=== PATIENT | male | born 1975 | race Hispanic/Latino ===

== ENCOUNTER 2018-02-15 16:47 | Emergency (ER) | payer OTHER ==
[2018-02-15 18:37] LABS: Absolute Lymphocytes (CBC) 1.3 K/uL (0.7-4.9); Absolute Monocytes 0.4 K/uL (0.1-1.3); Absolute Neutrophil 6.4 K/uL (1.8-8.0); Basophils % 0.6 % (0-1.3); Eosinophils % 1.1 % (0-4.4); Hematocrit 44.2 % (39.6-49.0); Lymphocytes % 15.6 % (15.3-44.8); MCH 30.7 pg (27.0-35.0); MCV 89.7 fL (80-100); MPV 8.6 fL (7.6-11.3); RBC Red Blood Cell Count 4.92 M/uL (4.33-5.43)
[2018-02-15 18:41] LABS: Protime INR 1.08
--- NOTE | 2018-02-15 18:41 | RAD REPORT ---
EXAM DESCRIPTION: RAD - Chest Single View - 02/15/2018 6:10 pm CLINICAL HISTORY: Chest pain COMPARISON: April 2016 TECHNIQUE: AP portable chest image was obtained 1759 hours . FINDINGS: Lungs are clear. Heart and vasculature are normal. No measurable pleural effusion and no p neumothorax. No gross bony abnormality seen. No acute aortic findings suspected. IMPRESSION: No acute cardiopulmonary process. No significant change from comparison.
[2018-02-15 19:01] LABS: ALT/SGPT 45 U/L (12-78); AST/SGOT 24 U/L (15-37); Albumin 3.8 g/dL (3.4-5.0); Alkaline Phosphatase 86 U/L (45-117); BUN Blood Urea Nitrogen 13 mg/dL (7-18); Bicarbonate 27 mmol/L (21-32); Bilirubin Direct 0.1 mg/dL (0-0.2); Bilirubin Total 0.4 mg/dL (0.2-1.0); CKMB Creatine Kinase MB < 1.0 ng/mL (0.3-3.6); Creatine Phosphokinase 118 U/L (39-308); Glucose Level 104 mg/dL (74-106); Magnesium 2.1 mg/dL (1.8-2.4); NT PRO-BNP 52 pg/mL (<125); Protein, Total 7.8 g/dL (6.4-8.2); Sodium Level 140 mmol/L (136-145)
[2018-02-15 19:54] LABS: Urine Blood TRACE (NEG); Urine Glucose NEGATIVE (NEG); Urine Protein NEGATIVE (NEG)
--- NOTE | 2018-02-15 20:27 | RAD REPORT ---
EXAM DESCRIPTION: CT - Head Brain Wo Cont - 02/15/2018 8:08 pm CLINICAL HISTORY: Occipital headache COMPARISON: July 2015 TECHNIQUE: Axial 5 mm thick images of the head were obtained without IV contrast. All CT scans are performed using dose optimization technique as appropriate and may include automated exposure control or mA/KV adjustment according to patient size. FINDINGS: No intracranial hemorrhage, mass, edema or shift of mid-line structures. No acute infarcti on changes seen. No abnormal extra-axial fluid collections. Ventricles are normal. No low-lying cereb ellar tonsils. Mastoid air cells and visualized portions of the paranasal sinuses are clear. No acute bony findings. IMPRESSION: Negative non-contrast CT head examination for acute or significant finding. No signific ant change from 2016.
--- NOTE | 2018-02-15 21:19 | EDPHYS ---
Physician Documentation [facility] Name: Jad Sanz Age: 42 yrs Sex: Male : 1975 Arrival Date: 02/15/2018 Time: 16:50 Bed 18 Private MD: ED Physician Landon Ramirez HPI: 02/15 17:28 This 42 yrs old Male presents to ER via Ambulatory with complaints of Anxiety, jmm Chest Pain. 17:28 The patient or guardian reports chest pain that is located primarily in the substernal [facility] area. Onset: gradually, 2 hour(s) ago. The pain does not radiate. Associated signs and symptoms: Pertinent positives: headache. This is a 42 year old male with a history of HTN that presents to the ED with chest pain and headache beginning approx 2 hours ago. Patient states his chest pain is currently minimal but still complains of headache. Patient denies weakness, Denies fever or chills. Patient denies radiation of chest pain . Historical: - Allergies: 17:10 NKA; iw - Home Meds: 17:10 None [Active]; iw - PMHx: 17:10 Hypertension; Gout; iw - PSHx: 17:10 None; iw - Immunization history:: Adult Immunizations up to date. - Social history:: Smoking status: Patient/guardian denies using tobacco. - Ebola Screening: : Patient negative for fever greater than or equal to 101.5 degrees Fahrenheit, and additional compatible Ebola Virus Disease symptoms Patient denies exposure to infectious person Patient denies travel to an Ebola-affected area in the 21 days before illness onset No symptoms or risks identified at this time. ROS: 17:28 Constitutional: Negative for fever, chills, and weight loss. jmm 17:28 Respiratory: Negative for shortness of breath, cough, wheezing, and pleuritic chest pain, Abdomen/GI: Negative for abdominal pain, nausea, vomiting, diarrhea, and constipation, Back: Negative for injury and pain, MS/Extremity: Negative for injury and deformity, Skin: Negative for injury, rash, and discoloration. 17:28 Cardiovascular: Positive for chest pain. 17:28 Neuro: Positive for headache. 17:28 All other systems are negative. Exam: 17:16 ECG was reviewed by the Attending Physician. [facility] 17:28 Constitutional: This is a well developed, well nourished patient who is awake, alert, jmm and in no acute distress. Head/Face: atraumatic. 17:28 Chest/axilla: Inspection: normal, Palpation: is normal. 17:28 Cardiovascular: Rate: normal, Rhythm: regular, Pulses: no pulse deficits are appreciated. 17:28 Respiratory: the patient does not display signs of respiratory distress, Respirations: normal, Breath sounds: are clear throughout. 17:28 Abdomen/GI: Inspection: obese Bowel sounds: normal, Palpation: abdomen is soft and non-tender, in all quadrants. 17:28 Back: ROM is normal. 17:28 Musculoskeletal/extremity: ROM: intact in all extremities. 17:28 Skin: Appearance: Color: normal in color. 17:28 Neuro: Orientation: is normal, Mentation: is normal, Memory: is normal. 17:28 Psych: Behavior/mood is pleasant, cooperative. Vital Signs: 17:10 BP 166 / 96; Pulse 64; Resp 18; Temp 98.2; Pulse Ox 98% on R/A; Weight 176.9 kg; Height iw 6 ft. 2 in. (187.96 cm); Pain 8/10; 18:24 BP 150 / 82; Pulse 59; Resp 16; Pulse Ox 98% on R/A; mh5 19:30 BP 133 / 76; Pulse 66; Resp 18; Pulse Ox 98% ; Pain 0/10; ea 20:30 BP 140 / 83; Pulse 69; Resp 18; Pulse Ox 97% ; Pain 0/10; ea 21:15 BP 140 / 82; Pulse 70; Resp 18; Temp 97.6; Pulse Ox 99% ; Pain 0/10; ea 17:10 Body Mass Index 50.07 (176.90 kg, 187.96 cm) MDM: 17:24 Patient medically screened. [facility] 19:52 Data reviewed: vital signs, nurses notes, lab test result(s). florinda 21:15 ED course: HEART SCORE = 1. ED course: PERC NEGATIVE. [facility] 21:30 Counseling: I had a detailed discussion with the patient and/or guardian regarding: the [facility] historical points, exam findings, and any diagnostic results supporting the discharge/admit diagnosis, lab results, radiology results, the need for outpatient follow up, to return to the emergency department if symptoms worsen or persist or if there are any questions or concerns that arise at home. 02/15 17:25 Order name: Basic Metabolic Panel; Complete Time: 19:28 [facility] 02/15 17:25 Order name: CBC with Diff; Complete Time: :28 [facility] 02/15 17:25 Order name: Ckmb; Complete Time: 19:28 [facility] 02/15 17:25 Order name: CPK; Complete Time: :28 [facility] 02/15 17:25 Order name: LFT's; Complete Time: :28 [facility] 02/15 17:25 Order name: Magnesium; Complete Time: 19:28 [facility] 02/15 17:25 Order name: NT PRO-BNP; Complete Time: :28 [facility] 02/15 17:25 Order name: PT-INR; Complete Time: :28 [facility] 02/15 17:25 Order name: Ptt, Activated; Complete Time: :28 [facility] 02/15 17:25 Order name: Troponin (emerg Dept Use Only); Complete Time: :28 [facility] 02/15 17:25 Order name: XRAY Chest (1 view); Complete Time: :28 [facility] 02/15 17:25 Order name: EKG; Complete Time: 17:26 [facility] 02/15 17:25 Order name: CT Head Brain wo Cont; Complete Time: 20:45 [facility] 02/15 19:19 Order name: Urine Dipstick--Ancillary (enter results) 2 02/15 17:25 Order name: Cardiac monitoring; Complete Time: 18:11 [facility] 02/15 17:25 Order name: EKG - Nurse/Tech; Complete Time: 18:11 [facility] 02/15 17:25 Order name: IV Saline Lock; Complete Time: 18:11 [facility] 02/15 17:25 Order name: Labs collected and sent; Complete Time: 18:11 [facility] 02/15 17:25 Order name: O2 Per Protocol; Complete Time: 18:11 [facility] 02/15 17:25 Order name: O2 Sat Monitoring; Complete Time: 18:11 [facility] 02/15 17:25 Order name: Urine Dipstick-Ancillary (obtain specimen); Complete Time: 19:18 jmm EC:16 Rate is 68 beats/min. Rhythm is regular. QRS [place] is Normal. NE interval is normal. QRS jmm interval is normal. QT interval is normal. T waves are Normal. No ST changes noted. Administered Medications: No medications were administered Disposition: 02/16 15:57 Co-signature as Attending Physician, Landon Ramirez MD. Disposition: 02/15/18 21:18 Discharged to Home. Impression: Chest pain, unspecified, Headache. - Condition is Stable. - Discharge Instructions: Nonspecific Chest Pain, General Headache Without Cause, [id number]. - Medication Reconciliation Form, Thank You Letter, Antibiotic Education, Prescription Opioid Use form. - Follow up: Private Physician; When: 1 - 2 days; Reason: Recheck today's complaints, Continuance of care, Re-evaluation by your physician. Signatures: Dispatcher [employer] EDMS Niko Wall PA PA jmm Williams, Irene, RN RN iw Antunez, Elena, RN RN ea Starr, Gregory, MD MD gs Corrections: (The following items were deleted from the chart) 02/15 21:32 21:18 02/15/2018 21:18 Discharged to Home. Impression: Chest pain, unspecified; ea Headache. Condition is Stable. Forms are Medication Reconciliation Form, Thank You Letter, Antibiotic Education, Prescription Opioid Use. Follow up: Private Physician; When: 1 - 2 days; Reason: Recheck today's complaints, Continuance of care, Re-evaluation by your physician. florinda 22:14 22:13 Counseling: I had a detailed discussion with the patient and/or guardian flroinda regarding: the historical points, exam findings, and any diagnostic results supporting the discharge/admit diagnosis, lab results, radiology results, the need for outpatient follow up, to return to the emergency department if symptoms worsen or persist or if there are any questions or concerns that arise at home, florinda
--- NOTE | 2018-02-15 21:19 | ER ---
Nurse's Notes [facility] Name: Jad Sanz Age: 42 yrs Sex: Male : 1975 Arrival Date: 02/15/2018 Time: 16:50 Bed 18 Private MD: Diagnosis: Chest pain, unspecified;Headache Presentation: 02/15 17:06 Presenting complaint: Patient states: c/o headache to occipital area, chills, sweating, iw dizziness, left sided chest pressure, pain to left arm, took his BP and it was 176/97, was taken off BP a year ago, called Dr. Campbell and was told to come to ER. Transition of care: patient was not received from another setting of care. Onset of symptoms was February 15, 2018. Risk Assessment: Do you want to hurt yourself or someone else? Patient reports no desire to harm self or others. Initial Sepsis Screen: Does the patient meet any 2 criteria? No. Patient's initial sepsis screen is negative. Does the patient have a suspected source of infection? No. Patient's initial sepsis screen is negative. Care prior to arrival: None. 17:06 Method Of Arrival: Ambulatory iw 17:06 Acuity: RONNI 3 iw Historical: - Allergies: 17:10 NKA; iw - Home Meds: 17:10 None [Active]; iw - PMHx: 17:10 Hypertension; Gout; iw - PSHx: 17:10 None; iw - Immunization history:: Adult Immunizations up to date. - Social history:: Smoking status: Patient/guardian denies using tobacco. - Ebola Screening: : Patient negative for fever greater than or equal to 101.5 degrees Fahrenheit, and additional compatible Ebola Virus Disease symptoms Patient denies exposure to infectious person Patient denies travel to an Ebola-affected area in the 21 days before illness onset No symptoms or risks identified at this time. Screenin:29 Abuse screen: Denies threats or abuse. Nutritional screening: No deficits noted. em Tuberculosis screening: No symptoms or risk factors identified. Fall Risk None identified. Assessment: 17:44 General: Appears in no apparent distress. comfortable, Behavior is calm, cooperative. em Pain: Complains of pain in occipital area and chest Pain does not radiate. Pain began 3 hours ago. Neuro: Level of Consciousness is awake, alert, obeys commands, Oriented to person, place, time, situation, Moves all extremities. Speech is normal, Facial symmetry appears normal, Reports headache occipital area. Cardiovascular: Capillary refill < 3 seconds Patient's skin is warm and dry. Cardiovascular: Reports diaphoresis, nausea, Denies Heart tones S1 S2 present. Respiratory: Airway is patent Respiratory effort is even, unlabored, Respiratory pattern is regular, symmetrical. GI: Abdomen is obese. : No signs and/or symptoms were reported regarding the genitourinary system. EENT: No signs and/or symptoms were reported regarding the EENT system. Derm: Skin is intact, Skin is pink, warm \T\ dry. Musculoskeletal: Range of motion: intact in all extremities. 18:00 Reassessment: Patient appears in no apparent distress at this time. I agree with above iw assessment by Joseph Tapia LVN. 18:30 Reassessment: Patient appears in no apparent distress at this time. Patient and/or em family updated on plan of care and expected duration. Pain level reassessed. Patient is alert, oriented x 3, equal unlabored respirations, skin warm/dry/pink. rates pain 4/10 Patient states feeling better. 19:20 General: Appears in no apparent distress. Behavior is calm, cooperative. Pain: Denies ea pain. Neuro: Level of Consciousness is awake, alert, obeys commands, Oriented to person, place, time, situation. Cardiovascular: Heart tones S1 S2 present Patient's skin is warm and dry. Respiratory: Airway is patent Respiratory effort is even, unlabored, Respiratory pattern is regular, symmetrical, Breath sounds are clear bilaterally. GI: Abdomen is obese, Bowel sounds present X 4 quads. : No signs and/or symptoms were reported regarding the genitourinary system. EENT: No signs and/or symptoms were reported regarding the EENT system. Derm: Skin is pink, warm \T\ dry. Musculoskeletal: Circulation, motion, and sensation intact. 20:59 Reassessment: Patient and/or family updated on plan of care and expected duration. Pain ea level reassessed. Patient is alert, oriented x 3, equal unlabored respirations, skin warm/dry/pink. Patient denies pain at this time. Patient states feeling better. 21:20 Reassessment: Patient and/or family updated on plan of care and expected duration. Pain ea level reassessed. Patient is alert, oriented x 3, equal unlabored respirations, skin warm/dry/pink. Discharge instructions given to patient, verbalized the understanding of instruction. Patient denies pain at this time. Patient states feeling better. Vital Signs: 17:10 BP 166 / 96; Pulse 64; Resp 18; Temp 98.2; Pulse Ox 98% on R/A; Weight 176.9 kg; Height iw 6 ft. 2 in. (187.96 cm); Pain 8/10; 18:24 BP 150 / 82; Pulse 59; Resp 16; Pulse Ox 98% on R/A; mh5 19:30 BP 133 / 76; Pulse 66; Resp 18; Pulse Ox 98% ; Pain 0/10; ea 20:30 BP 140 / 83; Pulse 69; Resp 18; Pulse Ox 97% ; Pain 0/10; ea 21:15 BP 140 / 82; Pulse 70; Resp 18; Temp 97.6; Pulse Ox 99% ; Pain 0/10; ea 17:10 Body Mass Index 50.07 (176.90 kg, 187.96 cm) ED Course: 16:50 Patient arrived in ED. mr 17:04 Niko Wall PA is PHCP. jmm 17:04 Landon Ramirez MD is Attending Physician. jmm 17:09 Triage completed. iw 17:10 Arm band placed on. iw 17:24 EKG done, by metallographic technician. reviewed by Niko MENDES. dt2 17:41 Joseph Tapia LVN is Primary Nurse. em 18:01 CT Head Brain wo Cont In Process Unspecified. EDMS 18:08 X-ray completed. Patient moved back from radiology. ml 18:09 XRAY Chest (1 view) In Process Unspecified. EDMS 18:25 No provider procedures requiring assistance completed. Inserted saline lock: 20 gauge em in right antecubital area, using aseptic technique. Blood collected. Patient maintains SpO2 saturation greater than 95% on room air. 18:29 Patient has correct armband on for positive identification. Bed in low position. Call em light in reach. Side rails up X2. Adult w/ patient. Pulse ox on. NIBP on. 19:41 Primary Nurse role handed off by Joseph Tapia LVN rg2 19:48 Sheyla Hargrove, JEVON is Primary Nurse. ea 21:27 IV discontinued, intact, bleeding controlled, No redness/swelling at site. Pressure ea dressing applied. Administered Medications: No medications were administered Outcome: 21:18 Discharge ordered by . florinda 21: Discharged to home ambulatory, with significant other. herson 21: Condition: improved 21:26 Discharge instructions given to patient, Instructed on discharge instructions, follow up and referral plans. Demonstrated understanding of instructions, follow-up care. 21:32 Patient left the ED. ea Signatures: Dispatcher [employer] EDMichaela Navas rg2 Niko Wall PA PA Yahaira Lowry mr Tapia, Joseph, JUNIOR BUSINESS ANALYST JUNIOR BUSINESS ANALYST Tiffanie Arizmendi, Ashly Johnson RN, [facility] Sheyla Hargrove RN RN Jane Rain dt2
--- NOTE | 2018-02-16 06:02 | EKG ---
Test Date: 2018-02-15 Test Time: 17:16:30 Gi Asst: SANDIE MEASUREMENT RESULTS: Intervals: Rate: 68 UT: 190 QRSD: 100 QT: 426 QTc: 452 [place]: P: 36 UT: 190 QRS: -4 T: -4 INTERPRETIVE STATEMENTS: Normal sinus rhythm Incomplete right bundle branch block Minimal voltage criteria for LVH, may be normal variant Cannot rule out Anterior infarct, age undetermined Abnormal ECG Compared to ECG 04/24/2016 01:22:42 Incomplete right bundle-branch block now present Left ventricular hypertrophy now present Myocardial infarct finding now present Electronically Signed On 02-16-18 06:01:28 CDT by Emir Foster
== END 2018-02-15 21:32 | disposition home or self-care (01) ==
LOC: ER 16:47
DX: R51 Headache (principal); I10 Essential (primary) hypertension
CPT/HCPCS: 36415; 70450; 71045; 80048; 80076; 81003; 82550; 82553; 83735; 83880; 84484; 85025; 85610; 85730; 93005; 99284

== ENCOUNTER 2018-11-28 01:49 | Emergency (ER) | payer OTHER, SELFPAY ==
[2018-11-28] MEDS ORDERED: ACETAMINOPHEN 500 MG TAB ONE (02:17)
[2018-11-28 02:28] LABS: Urine Bacteria 20-50 /HPF (NONE SEEN); Urine Culture Reflex Order NOT NEEDED; Urine RBC <5 /HPF (NONE SEEN)
[2018-11-28] MEDS ORDERED: NA CHLORIDE 0.9% 1,000 ML ONE (02:33)
[2018-11-28 02:38] LABS: Absolute Lymphocytes (CBC) 0.8 K/uL (0.7-4.9); Absolute Monocytes 0.4 K/uL (0.1-1.3); Absolute Neutrophil 11.1 K/uL (1.8-8.0); Basophils % 0.2 % (0-1.3); Eosinophils % 0.4 % (0-4.4); Hematocrit 44.4 % (39.6-49.0); Lymphocytes % 6.8 % (15.3-44.8); MPV 8.8 fL (7.6-11.3); Monocytes % 3.2 % (3.3-12.3); RBC Red Blood Cell Count 4.97 M/uL (4.33-5.43)
[2018-11-28 02:52] LABS: Albumin 3.7 g/dL (3.4-5.0); Bilirubin Direct 0.2 mg/dL (0-0.2); Bilirubin Total 0.9 mg/dL (0.2-1.0); Potassium 3.7 mmol/L (3.5-5.1); Protein, Total 7.5 g/dL (6.4-8.2)
[2018-11-28 02:54] LABS: Urine Blood 1+ (NEG); Urine Glucose NEGATIVE (NEG); Urine Protein 2+ (NEG); Urine pH 6.5 (5.0-7.0)
[2018-11-28] MEDS ORDERED: CEFTRIAXONE/SWI 1gm 1 GM/10 ML SYR ONE (03:25)
--- NOTE | 2018-11-28 04:21 | EDPHYS ---
Physician Documentation [facility] Name: Jad Sanz Age: 43 yrs Sex: Male : 1975 Arrival Date: 11/28/2018 Time: 01:51 Bed 7 Private MD: ED Physician Jass Lino HPI: 11/28 02:02 This 43 yrs old Male presents to ER via Unassigned with complaints of Low Back rn Pain, Pain With Urination. 02:03 The patient presents with urinary symptoms, dysuria. Onset: The symptoms/episode rn began/occurred yesterday. Modifying factors: The symptoms are alleviated by nothing, the symptoms are aggravated by urinating. Severity of symptoms: At their worst the symptoms were mild, in the emergency department the symptoms are unchanged. The patient has experienced a previous episode. Reports dysuria, chills, fever, began yesterday, has had UTI in past as well as kidney stones. Reports not having pain from kidney stone, last stone was 10-15 years ago, denies abd pain. Denies vomiting/diarrhea. Denies rash or swelling or pain of penis. No hematuria. . Historical: - Allergies: 02:32 NKA; lp1 - Home Meds: 02:32 Lisinopril Oral [Active]; Colchicine Oral [Active]; lp1 - PMHx: 02:32 Gout; Hypertension; lp1 - PSHx: 02:32 None; lp1 - Immunization history:: Adult Immunizations up to date. - Family history:: not pertinent. - Social history:: Smoking status: Patient/guardian denies using tobacco. - Ebola Screening: : No symptoms or risks identified at this time. - Hospitalizations: : No recent hospitalization is reported. 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 Ambulatory to room without assistance or difficulty. Head/Face: Normocephalic, atraumatic. ENT: MMM Cardiovascular: tachycardic, regular Respiratory: No increased work of breathing, no retractions or nasal flaring. Speaking full sentences Abdomen/GI: soft, non-tender, non-distended Back: No spinal tenderness. No costovertebral tenderness. Full range of motion. Skin: Warm, dry no evidence of cellulitis MS/ Extremity: Pulses equal, no cyanosis. Neurovascular intact. Full, normal range of motion. Equal circumference. Neuro: Awake and alert, GCS 15, oriented to person, place, time, and situation. Cranial nerves II-XII grossly intact. Motor strength 5/5 in all extremities. Sensory grossly intact. Cerebellar exam normal. Normal gait. Vital Signs: 02:07 BP 150 / 97; Pulse 122; Resp 18; Temp 102.9(O); Pulse Ox 95% on R/A; Weight 174.63 kg; lp1 Height 6 ft. 2 in. (187.96 cm); Pain 0/10; 02:55 BP 120 / 58; Pulse 100; Resp 18; Temp 99.3(O); Pulse Ox 96% on R/A; lp1 03:55 BP 117 / 75; Pulse 84; Resp 18; Temp 98.6(O); Pulse Ox 97% on R/A; Pain 0/10; lp1 02:07 Body Mass Index 49.43 (174.63 kg, 187.96 cm) lp1 MDM: 01:51 Patient medically screened. rn 04:19 Differential diagnosis: UTI, prostatitis, urethritis. Data reviewed: vital signs, rn nurses notes, lab test result(s), radiologic studies, and as a result, I will discharge patient. Counseling: I had a detailed discussion with the patient and/or guardian regarding: the historical points, exam findings, and any diagnostic results supporting the discharge/admit diagnosis, lab results, radiology results, the need for outpatient follow up, to return to the emergency department if symptoms worsen or persist or if there are any questions or concerns that arise at home. Special discussion: I discussed with the patient/guardian in detail that at this point there is no indication for admission to the hospital. It is understood, however, that if the symptoms persist or worsen the patient needs to return immediately for re-evaluation. ED course: NO acute findings on CT, bloodwork looks good, + UTI, will treat with abx and return precautions.. 11/28 02:02 Order name: Urine Microscopic Only; Complete Time: 02:56 rn 11/28 02:02 Order name: Urine Culture rn 11/28 02:15 Order name: Basic Metabolic Panel; Complete Time: 02:56 rn 11/28 02:15 Order name: CBC with Diff; Complete Time: 02:56 rn 11/28 02:15 Order name: Hepatic Function; Complete Time: 02:56 rn 11/28 02:15 Order name: Lipase; Complete Time: 02:56 rn 11/28 02:02 Order name: Urine Dipstick-Ancillary (obtain specimen); Complete Time: 02:16 rn 11/28 02:15 Order name: IV Saline Lock; Complete Time: 02:29 rn 11/28 02:15 Order name: CT Stone Protocol rn 11/28 02:15 Order name: Flu; Complete Time: 02:56 rn 11/28 02:15 Order name: Urine Dipstick--Ancillary (enter results); Complete Time: 02:56 ak 11/28 02:15 Order name: Labs collected and sent; Complete Time: 02:29 rn Administered Medications: 02:06 Drug: Tylenol 1000 mg Route: PO; lp1 03:15 Follow up: Response: Temperature is decreased lp1 02:29 Drug: NS 0.9% 1000 ml Route: IV; Rate: 1000 ml; Site: right antecubital; lp1 03:50 Follow up: IV Status: Completed infusion; IV Intake: 1000ml lp1 03:12 Drug: Rocephin - (cefTRIAXone) 1 grams Route: IVPB; Infused Over: 30 mins; Site: right lp1 antecubital; 03:15 Follow up: IV Status: Completed infusion lp1 03:50 Follow up: Response: No adverse reaction; IV Intake: 10ml lp1 Disposition: 11/28/18 04:20 Discharged to Home. Impression: Urinary tract infection, site not specified. - Condition is Stable. - Discharge Instructions: Urinary Tract Infection, Adult. - Prescriptions for Levaquin 500 mg Oral Tablet - take 1 tablet by ORAL route once daily for 10 days; 10 tablet. - Medication Reconciliation Form, Thank You Letter, Antibiotic Education, Prescription Opioid Use form. - Work release form (11/28/18 04:28). lp1 - Follow up: Private Physician; When: As needed; Reason: Recheck today's complaints, Re-evaluation by your physician. - Problem is new. - Symptoms have improved. Signatures: Dispatcher [employer] EDMS Jass Lino MD MD rn Pena, Laura, RN RN lp1 Corrections: (The following items were deleted from the chart) 04:27 04:20 11/28/2018 04:20 Discharged to Home. Impression: Urinary tract infection, site lp1 not specified. Condition is Stable. Forms are Medication Reconciliation Form, Thank You Letter, Antibiotic Education, Prescription Opioid Use. Follow up: Private Physician; When: As needed; Reason: Recheck today's complaints, Re-evaluation by your physician. Problem is new. Symptoms have improved. rn
--- NOTE | 2018-11-28 04:21 | ER ---
Nurse's Notes [facility] Name: Jad Sanz Age: 43 yrs Sex: Male : 1975 Arrival Date: 11/28/2018 Time: 01:51 Bed 7 Private MD: Diagnosis: Urinary tract infection, site not specified Presentation: 11/28 02:06 Presenting complaint: Patient states: Lower back pain, pain with urination x 2 days; lp1 States chills tonight. Transition of care: patient was not received from another setting of care. Onset of symptoms was November 28, 2018. Risk Assessment: Do you want to hurt yourself or someone else? Patient reports no desire to harm self or others. Care prior to arrival: None. 02:06 Method Of Arrival: Ambulatory lp1 02:06 Acuity: RONNI 3 lp1 02:10 Initial Sepsis Screen: Does the patient meet any 2 criteria? Temp <36.0*C (96.8*F)) or lp1 > 38.3*C (100.9*F). HR > 90 bpm. Yes Does the patient have a suspected source of infection? Yes: Dysuria/Frequency/Urgency/UTI If YES to both, name of provider notified: Jass Lino MD. Historical: - Allergies: 02:32 NKA; lp1 - Home Meds: 02:32 Lisinopril Oral [Active]; Colchicine Oral [Active]; lp1 - PMHx: 02:32 Gout; Hypertension; lp1 - PSHx: 02:32 None; lp1 - Immunization history:: Adult Immunizations up to date. - Family history:: not pertinent. - Social history:: Smoking status: Patient/guardian denies using tobacco. - Ebola Screening: : No symptoms or risks identified at this time. - Hospitalizations: : No recent hospitalization is reported. Screenin:30 Abuse screen: Denies threats or abuse. Denies injuries from another. Nutritional lp1 screening: No deficits noted. Tuberculosis screening: No symptoms or risk factors identified. Fall Risk None identified. Assessment: 02:15 General: Appears ill, Behavior is appropriate for age. Pain: Denies pain. Neuro: Level lp1 of Consciousness is awake, alert, obeys commands, Oriented to person, place, time, situation, Gait is steady. Cardiovascular: Patient's skin is warm and dry. Respiratory: Respiratory effort is even, unlabored. GI: Abdomen is obese, Patient currently denies abdominal pain. : Reports burning with urination, pain in lower back. EENT: No deficits noted. Derm: Skin is intact, Skin is dry, Skin is normal, Skin temperature is hot. Musculoskeletal: No deficits noted. 02:54 Reassessment: Returned from CT at this time; Patient states feeling better. Patient lp1 states symptoms have improved. 04:00 Reassessment: Patient appears in no apparent distress at this time. No changes from lp1 previously documented assessment. Patient is alert, oriented x 3, equal unlabored respirations, skin warm/dry/pink. Patient denies pain at this time. Patient states feeling better. Vital Signs: 02:07 BP 150 / 97; Pulse 122; Resp 18; Temp 102.9(O); Pulse Ox 95% on R/A; Weight 174.63 kg; lp1 Height 6 ft. 2 in. (187.96 cm); Pain 0/10; 02:55 BP 120 / 58; Pulse 100; Resp 18; Temp 99.3(O); Pulse Ox 96% on R/A; lp1 03:55 BP 117 / 75; Pulse 84; Resp 18; Temp 98.6(O); Pulse Ox 97% on R/A; Pain 0/10; lp1 02:07 Body Mass Index 49.43 (174.63 kg, 187.96 cm) lp1 ED Course: 01:51 Patient arrived in ED. am2 01:51 Jass Lino MD is Attending Physician. rn 02:05 Dorothea Sandoval RN is Primary Nurse. lp1 02:07 Triage completed. lp1 02:08 Arm band placed on right wrist. lp1 02:25 Inserted saline lock: 20 gauge in right antecubital area, using aseptic technique. lp1 Blood collected. 02:25 Flu and/or RSV swab sent to lab. lp1 02:32 Patient has correct armband on for positive identification. Placed in gown. Pulse ox lp1 on. NIBP on. 02:32 No provider procedures requiring assistance completed. lp1 03:05 CT [place] Protocol In Process Unspecified. EDMS 04:26 IV discontinued, No redness/swelling at site. Pressure dressing applied. lp1 Administered Medications: 02:06 Drug: Tylenol 1000 mg Route: PO; lp1 03:15 Follow up: Response: Temperature is decreased lp1 02:29 Drug: NS 0.9% 1000 ml Route: IV; Rate: 1000 ml; Site: right antecubital; lp1 03:50 Follow up: IV Status: Completed infusion; IV Intake: 1000ml lp1 03:12 Drug: Rocephin - (cefTRIAXone) 1 grams Route: IVPB; Infused Over: 30 mins; Site: right lp1 antecubital; 03:15 Follow up: IV Status: Completed infusion lp1 03:50 Follow up: Response: No adverse reaction; IV Intake: 10ml lp1 Intake: 03:50 IV: 1000ml; Total: 1000ml. lp1 03:50 IV: 10ml; Total: 1010ml. lp1 Outcome: 04:20 Discharge ordered by . rn 04:26 Discharged to home ambulatory, with significant other. lp1 04:26 Condition: good 04:26 Discharge instructions given to patient, Instructed on discharge instructions, follow up and referral plans. medication usage, Demonstrated understanding of instructions, follow-up care, medications, Prescriptions given X 1. 04:27 Patient left the ED. lp1 Addendum: 12/01/2018 07:54 Addendum: Culture Results: Positive urine culture. No further action required. Bacteria s s sensitive to prescribed antibiotic. Signatures: Dispatcher [employer] EDMS Jass Lino MD MD rn Smirch, Shelby, RN RN ss Pena, Laura, RN RN lp1 Charis Wright
--- OUTSIDE RECORDS SUMMARY | 2018-11-28 12:42 | XMS REPORT ---
:1975 [facility] Address [address] [place] [address] [address] [place] [address] Care Team Providers Name Role Phone Unavailable Unavailable Unavailable Problems This patient has no known problems. Allergies, Adverse Reactions, Alerts This patient has no known allergies or adverse reactions. Medications This patient has no known medications.
--- NOTE | 2018-11-28 14:10 | RAD REPORT ---
EXAM DESCRIPTION: CT - Stone Protocol - 11/28/2018 11:43 am CLINICAL HISTORY: Abdominal pain. COMPARISON: 2010 TECHNIQUE: Computed axial tomography of the abdomen pelvis was obtained without oral or IV contrast. Lack of IV and oral contrast limits evaluation of solid organs, bowel, and vessels. Coronal reformat adriana images were obtained and reviewed. All CT scans are performed using dose optimization technique as appropriate and may include automated exposure control or mA/KV adjustment according to patient size. FINDINGS: A renal calculus is not seen. An ureteral calculus is not noted. A bladder calculus is not present. Fatty liver The Spleen, pancreas and adrenals appear grossly normal There is no evidence of diverticulitis. The appendix appears normal Inguinal hernia contains fat. The neck measures 32 millimeters. Small bilateral inguinal hernias cont ain fat Prostate gland is moderately enlarged IMPRESSION: Negative for a genitourinary calculus
== END 2018-11-28 04:27 | disposition home or self-care (01) ==
LOC: ER 01:49
DX: N39.0 Urinary tract infection, site not specified (principal); I10 Essential (primary) hypertension; M10.9 Gout, unspecified
CPT/HCPCS: 36415; 74176; 76377; 80048; 80076; 81003; 81015; 83690; 85025; 87077; 87086; 87088; 87186; 87804; 96361; 96374; 99284; J0696; J7030

== ENCOUNTER 2020-03-03 11:35 | Emergency (ER) | payer OTHER ==
--- OUTSIDE RECORDS SUMMARY | 2020-03-03 11:39 | XMS REPORT | Continuity of Care Document ---
:1975 Author Organization [facility] t Address [address] [place] [address] Care Team Providers Name Role Phone Unavailable Unavailable Unavailable Problems This patient has no known problems. Allergies, Adverse Reactions, Alerts This patient has no known allergies or adverse reactions. Medications This patient has no known medications. Procedures This patient has no known procedures. Results This patient has no known results.
[2020-03-03 13:10] LABS: Absolute Lymphocytes (CBC) 1.3 K/uL (0.7-4.9); Basophils % 0.3 % (0-1.3); Lymphocytes % 13.3 % (15.3-44.8); MPV 8.4 fL (7.6-11.3); RBC Red Blood Cell Count 5.34 M/uL (4.33-5.43)
[2020-03-03 13:20] LABS: Protime INR 1.07
--- NOTE | 2020-03-03 13:26 | RAD REPORT ---
EXAM DESCRIPTION: Aaliyah Single View03/03/2020 1:18 pm CLINICAL HISTORY: Cough COMPARISON: 2017 FINDINGS: The lungs appear clear of acute infiltrate. The heart is probably upper limits normal siz e IMPRESSION: No acute abnormalities displayed
[2020-03-03 13:32] LABS: ALT/SGPT 82 U/L (12-78); AST/SGOT 47 U/L (15-37); Albumin 3.6 g/dL (3.4-5.0); Alkaline Phosphatase 92 U/L (45-117); BUN Blood Urea Nitrogen 13 mg/dL (7-18); Bicarbonate 27 mmol/L (21-32); Bilirubin Direct 0.1 mg/dL (0-0.2); Bilirubin Total 0.6 mg/dL (0.2-1.0); Glucose Level 110 mg/dL (74-106); Magnesium 2.3 mg/dL (1.8-2.4); NT PRO-BNP 64 pg/mL (<125); Protein, Total 8.4 g/dL (6.4-8.2); Sodium Level 141 mmol/L (136-145); Troponin (Emerg Dept Use Only) < 0.02 ng/mL (0.0-0.045)
--- NOTE | 2020-03-03 13:38 | EDPHYS ---
Physician Documentation [facility] Name: Jad Sanz Age: 44 yrs Sex: Male : 1975 Arrival Date: 03/03/2020 Time: 11:39 Bed 6 Private MD: [facility] ED Physician Florentin Casey HPI: 03/03 17:28 This 44 yrs old Male presents to ER via Ambulatory with complaints of Cough kdr and SOB. 17:29 The patient has shortness of breath at rest, with light activity. Onset: The kdr symptoms/episode began/occurred suddenly, this morning. Duration: The symptoms are intermittent, with no pattern. The patient's shortness of breath is aggravated by nothing, is alleviated by nothing. Associated signs and symptoms: Pertinent positives: diaphoresis, Anxious. Severity of symptoms: At their worst the symptoms were mild moderate just prior to arrival, in the emergency department the symptoms are unchanged. The patient has not experienced similar symptoms in the past. The patient has not recently seen a physician. Historical: - Allergies: 11:54 NKA; ll1 - PMHx: 11:54 Gout; Hypertension; ll1 - Immunization history:: Flu vaccine is not up to date. - Social history:: Smoking status: Patient denies any tobacco usage or history of. Patient/guardian denies using alcohol, street drugs. ROS: 17:29 Constitutional: Negative for fever, chills, and weight loss, Eyes: Negative for injury, kdr pain, redness, and discharge, ENT: Negative for injury, pain, and discharge, Neck: Negative for injury, pain, and swelling, Cardiovascular: Negative for chest pain, palpitations, and edema, Abdomen/GI: Negative for abdominal pain, nausea, vomiting, diarrhea, and constipation, Back: Negative for injury and pain, : Negative for injury, bleeding, discharge, and swelling, MS/Extremity: Negative for injury and deformity, Skin: Negative for injury, rash, and discoloration, Neuro: Negative for headache, weakness, numbness, tingling, and seizure activity. Allergy/Immunology: Negative for hives, rash, and allergies, Endocrine: Negative for neck swelling, polydipsia, polyuria, polyphagia, and marked weight changes, Hematologic/Lymphatic: Negative for swollen nodes, abnormal bleeding, and unusual bruising. 17:29 Respiratory: Positive for cough, shortness of breath, Negative for dyspnea on exertion, hemoptysis, orthopnea, pleurisy. 17:29 Psych: Positive for anxiety, Negative for depression, drug dependence, alcohol dependence, insomnia, suicide gesture, suicidal ideation. Exam: 13:02 ECG was reviewed by the Attending Physician. kdr 17:29 Constitutional: This is a well developed, well nourished patient who is awake, alert, kdr and in no acute distress. Head/Face: Normocephalic, atraumatic. Eyes: Pupils equal round and reactive to light, extra-ocular motions intact. Lids and lashes normal. Conjunctiva and sclera are non-icteric and not injected. Cornea within normal limits. Periorbital areas with no swelling, redness, or edema. Neck: Trachea midline, no thyromegaly or masses palpated, and no cervical lymphadenopathy. Supple, full range of motion without nuchal rigidity, or vertebral point tenderness. No Meningismus. Chest/axilla: Normal chest wall appearance and motion. Nontender with no deformity. No lesions are appreciated. Cardiovascular: Regular rate and rhythm with a normal S1 and S2. No gallops, murmurs, or rubs. Normal PMI, no JVD. No pulse deficits. Respiratory: Lungs have equal breath sounds bilaterally, clear to auscultation and percussion. No rales, rhonchi or wheezes noted. No increased work of breathing, no retractions or nasal flaring. Abdomen/GI: Soft, non-tender, with normal bowel sounds. No distension or tympany. No guarding or rebound. No evidence of tenderness throughout. Back: No spinal tenderness. No costovertebral tenderness. Full range of motion. Skin: Warm, dry with normal turgor. Normal color with no rashes, no lesions, and no evidence of cellulitis. MS/ Extremity: Pulses equal, no cyanosis. Neurovascular intact. Full, normal range of motion. Neuro: Awake and alert, GCS 15, oriented to person, place, time, and situation. Cranial nerves II-XII grossly intact. Motor strength 5/5 in all extremities. Sensory grossly intact. Cerebellar exam normal. Normal gait. Psych: Awake, alert, with orientation to person, place and time. Behavior, mood, and affect are within normal limits. Vital Signs: 11:51 BP 154 / 95; Pulse 95; Resp 19; Temp 97.9; Pulse Ox 99% ; Pain 0/10; ll1 13:14 BP 131 / 93; Pulse 87; Resp 20; Pulse Ox 96% on R/A; sv 14:11 BP 134 / 90; Pulse 83; Resp 20; Pulse Ox 95% on R/A; sv MDM: 13:37 Patient medically screened. kdr 17:29 Data reviewed: vital signs, nurses notes, lab test result(s), radiologic studies. kdr Counseling: I had a detailed discussion with the patient and/or guardian regarding: the historical points, exam findings, and any diagnostic results supporting the discharge/admit diagnosis, lab results, radiology results, the need for outpatient follow up. Special discussion: I discussed with the patient/guardian in detail that at this point there is no indication for admission to the hospital. It is understood, however, that if the symptoms persist or worsen the patient needs to return immediately for re-evaluation. ED course: The patient was happy with the care provided and the plan for discharge and follow-up. 03/03 12:38 Order name: Basic Metabolic Panel; Complete Time: 13:36 [facility] 03/03 12:38 Order name: CBC with Diff; Complete Time: 13:36 kdr 03/03 12:38 Order name: LFT's; Complete Time: 13:36 kdr 03/03 12:38 Order name: Magnesium; Complete Time: 13:36 [facility] 03/03 12:38 Order name: NT PRO-BNP; Complete Time: 13:36 [facility] 03/03 12:38 Order name: PT-INR; Complete Time: 13:36 [facility] 03/03 12:38 Order name: CXR XRAY; Complete Time: 13:36 kdr 03/03 12:38 Order name: Troponin (emerg Dept Use Only); Complete Time: 13:36 kdr 03/03 12:38 Order name: EKG; Complete Time: 12:39 kdr 03/03 12:38 Order name: Cardiac monitoring; Complete Time: 13:06 kdr 03/03 12:38 Order name: EKG - Nurse/Tech; Complete Time: 13:07 kdr 03/03 12:38 Order name: IV Saline Lock; Complete Time: 13:07 kdr 03/03 12:38 Order name: DD; Complete Time: 13:36 kdr 03/03 12:38 Order name: COVID-19 [facility] 03/03 12:38 Order name: Labs collected and sent; Complete Time: 13:07 [facility] 03/03 12:38 Order name: O2 Per Protocol; Complete Time: 13:07 [facility] 03/03 12:38 Order name: O2 Sat Monitoring; Complete Time: 13:07 [facility] EC:02 Rate is 91 beats/min. Rhythm is regular, Normal Sinus Rhythm. QRS [place] is Normal. [place] kdr interval is normal. QRS interval is normal. Clinical impression: NSR w/ Non-specific ST/T Changes. Administered Medications: No medications were administered Disposition: 03/03/20 13:37 Discharged to Home. Impression: Shortness of breath, Cough. - Condition is Stable. - Discharge Instructions: COVID-19, Shortness of Breath, [id number], Hypertension, Hfvo-lm-Tyxw, Cough, Adult, [id number]. - Prescriptions for Tessalon Perles 100 mg Oral Capsule - take 1 capsule by ORAL route every 8 hours As needed; 15 capsule. Albuterol Sulfate 90 mcg/actuation - inhale 1-2 puff by INHALATION route every 4-6 hours; 1 Inhaler. Prednisone 20 mg Oral Tablet - take 1 tablet by ORAL route once daily for 5 days; 5 tablet. - Work release form, Medication Reconciliation Form, Thank You Letter form. - Follow up: Bin Campbell DO; When: 2 - 3 days; Reason: If symptoms return, Further diagnostic work-up, Recheck today's complaints, Continuance of care, Re-evaluation by your physician. - Problem is an ongoing problem. - Symptoms have improved. Signatures: Dispatcher [employer] Katina Davenport RN RN sv Florentin Casey MD MD kdr Lewis, Lynsay, RN RN ll1 Corrections: (The following items were deleted from the chart) 14:12 13:37 03/03/2020 13:37 Discharged to Home. Impression: Shortness of breath; Cough. sv Condition is Stable. Forms are Medication Reconciliation Form, Thank You Letter, Antibiotic Education, Prescription Opioid Use. Follow up: Bin Campbell; When: 2 - 3 days; Reason: If symptoms return, Further diagnostic work-up, Recheck today's complaints, Continuance of care, Re-evaluation by your physician. Problem is an ongoing problem. Symptoms have improved. kdr
--- NOTE | 2020-03-03 13:38 | ER ---
Nurse's Notes [facility] Name: Jad Sanz Age: 44 yrs Sex: Male : 1975 Arrival Date: 03/03/2020 Time: 11:39 Bed 6 Private MD: Bin Campbell Diagnosis: Shortness of breath;Cough Presentation: 03/03 11:51 Chief complaint: Patient states: Started to have sweats, AUGUSTIN, anxious, and chest ll1 pressure with slight SOB today. On azithromycin and loratidine for cough, never had a covid test (cough for 1 week). No known fever at home. BP was 160's/100's today. Coronavirus screen: Client indicates they have traveled out of the [place] in the last 14 days. Client traveled to: [place] cough unrelated to allergies, difficulty breathing, shortness of breath, Client presents with at least one sign or symptom that may indicate coronavirus-19. Standard/surgical mask placed on the client. Ebola Screen: Patient denies travel to an Ebola-affected area in the 21 days before illness onset. Initial Sepsis Screen: Does the patient meet any 2 criteria? HR > 90 bpm. Risk Assessment: Do you want to hurt yourself or someone else? Patient reports no desire to harm self or others. Onset of symptoms was March 03, 2020. 11:51 Method Of Arrival: Ambulatory ll1 11:51 Acuity: RONNI 3 ll1 12:45 Initial Sepsis Screen: Does the patient have a suspected source of infection? No. sv Patient's initial sepsis screen is negative. Historical: - Allergies: 11:54 NKA; ll1 - PMHx: 11:54 Gout; Hypertension; ll1 - Immunization history:: Flu vaccine is not up to date. - Social history:: Smoking status: Patient denies any tobacco usage or history of. Patient/guardian denies using alcohol, street drugs. Screenin:40 Abuse screen: Denies threats or abuse. Denies injuries from another. Nutritional sv screening: No deficits noted. Tuberculosis screening: No symptoms or risk factors identified. Fall Risk None identified. Assessment: 12:45 General: Appears in no apparent distress. comfortable, obese, well groomed, well sv developed, Behavior is calm, cooperative, appropriate for age. Pain: Denies pain. Neuro: Level of Consciousness is awake, alert, obeys commands, Oriented to person, place, time, situation, Moves all extremities. Full function Speech is normal. Cardiovascular: Denies chest pain, shortness of breath. Respiratory: Airway is patent Respiratory effort is even, unlabored, Respiratory pattern is regular, symmetrical. Respiratory: Reports cough that is non-productive. Derm: Skin is intact, Skin is pink, warm \T\ dry. Musculoskeletal: Range of motion: intact in all extremities. 14:11 Reassessment: Patient appears in no apparent distress at this time. No changes from sv previously documented assessment. Patient and/or family updated on plan of care and expected duration. Pain level reassessed. Patient is alert, oriented x 3, equal unlabored respirations, skin warm/dry/pink. Vital Signs: 11:51 BP 154 / 95; Pulse 95; Resp 19; Temp 97.9; Pulse Ox 99% ; Pain 0/10; ll1 13:14 BP 131 / 93; Pulse 87; Resp 20; Pulse Ox 96% on R/A; sv 14:11 BP 134 / 90; Pulse 83; Resp 20; Pulse Ox 95% on R/A; sv ED Course: 11:39 Patient arrived in ED. mr 11:40 Bin Campbell DO is Private Physician. mr 11:49 Florentin Casey MD is Attending Physician. kdr 11:54 Triage completed. ll1 11:54 Arm band placed on Patient placed in an exam room, on a stretcher. ll1 12:36 Katina Marinelli, RN is Primary Nurse. sv 12:40 Patient has correct armband on for positive identification. Bed in low position. Call sv light in reach. front desk monitor on. Pulse ox on. NIBP on. Door closed. Head of bed elevated. 12:45 Inserted saline lock: 20 gauge in right antecubital area, using aseptic technique. sv Blood collected. Flushed right antecubital with 5 ml normal saline. 12:47 EKG done, by ED staff, reviewed by Florentin Casey MD. sv 12:55 X-ray(s) taken. sv 13:16 Awaiting lab results, Awaiting radiology results. sv 13:18 CXR XRAY In Process Unspecified. EDMS 13:37 Bin Campbell DO is Referral Physician. kdr 14:12 No provider procedures requiring assistance completed. IV discontinued, intact, sv bleeding controlled, No redness/swelling at site. Pressure dressing applied. Administered Medications: No medications were administered Outcome: 13:37 Discharge ordered by . kdr 14:12 Discharged to home ambulatory, with family. sv 14:12 Condition: stable 14:12 Discharge instructions given to patient, Instructed on discharge instructions, follow up and referral plans. medication usage, Demonstrated understanding of instructions, follow-up care, medications, Prescriptions given X 3. 14:12 Patient left the ED. sv Addendum: 03/06/2020 17:32 Addendum: COVID-19 Result: Positive result giiven to ED physician to notify pt. i w Physician: David Alonso MD Physician was able to contact pt and pt was notified of positive COVID-19 swab result. Physician answered pt questions. 20:41 Addendum: COVID-19 Result: Positive result giiven to ED physician to notify pt. Other: l p1 Patient call for questions about COVID positive results; Questions answered by Dr. Mayen; Patient directed to obtain copy of results from Medical Records. Signatures: Dispatcher [employer] Katina Davenport, RN RN Florentin Morgan MD MD kdr Rivera, Mary mr Tiffanie Muhammad RN RN iw Dorothea Sandoval RN RN lp1 Mirta Nevarez RN RN ll1
--- NOTE | 2020-03-04 08:17 | EKG ---
Test Date: 2020-03-03 Test Time: 12:53:16 Collar Separator: SCOTT MEASUREMENT RESULTS: Intervals: Rate: 91 MO: 174 QRSD: 92 QT: 382 QTc: 469 [place]: P: 32 MO: 174 QRS: -5 T: 5 INTERPRETIVE STATEMENTS: Normal sinus rhythm Incomplete right bundle branch block Minimal voltage criteria for LVH, may be normal variant Possible Anterior infarct, age undetermined Abnormal ECG Compared to ECG 02/15/2018 17:16:30 No significant changes Electronically Signed On 03-04-20 08:16:33 CDT by Emir Foster
[2020-03-05 12:27] VITALS: TEMP 97.9
[2020-03-05 12:30] VITALS: BP 134/90; O2SAT 95
== END 2020-03-03 14:12 | disposition home or self-care (01) ==
LOC: ER 11:35
DX: U07.1 COVID-19 (principal); J98.8 Other specified respiratory disorders; R06.02 Shortness of breath; R05 Cough
CPT/HCPCS: 93005; 85025; 80048; 36415; 83735; 85610; 85379; 80076; 84484; 83880; 71045; 99284; U0002

== ENCOUNTER 2021-12-15 06:50 | Inpatient (IN) | payer OTHER, SELFPAY ==
--- OUTSIDE RECORDS SUMMARY | 2021-12-15 06:53 | XMS REPORT | Continuity of Care Document ---
:1975 Author Organization [facility] t Address [address] [place] [address] Care Team Providers Name Role Phone Bin Campbell Attending Clinician Unavailable Problems This patient has no known problems. Allergies, Adverse Reactions, Alerts This patient has no known allergies or adverse reactions. Medications This patient has no known medications. Procedures This patient has no known procedures. Encounters Start End Encounter Admission Attending Care Care Encounter Source Date/Time Date/Time Type Type Clinicians Facility Department ID 2021-11-03 Outpatient Campbell, [facility] [id number] Common 15:25:01 Bin [facility] 2021-09-07 Outpatient Campbell, [facility] [id number] Common 10:39:03 Bin [facility] 2021-07-27 Outpatient Campbell, [facility] [id number] Common 14:24:18 Bin [facility] 2021-07-27 Outpatient Campbell, [facility] [id number] Common 14:22:53 Bin [id number] [facility] 2021-07-27 Outpatient Campbell, [facility] [id number] Common 12:39:48 Bin [id number] [facility] 2021-07-27 Outpatient Campbell, [facility] [id number] Common 12:33:07 Bin [id number] [facility] 2021-07-27 Outpatient Campbell, [facility] [id number] Common 12:28:27 Bin [id number] [facility] 2021-07-27 Outpatient Campbell, [facility] [id number] Common 12:28:02 Bin [id number] [facility] 2021-07-27 Outpatient JOHN Campbell [facility] [id number] Common 11:56:04 Bin [id number] [facility] 2021-07-27 Outpatient JOHN Campbell [facility] [id number] Common 11:48:40 Bin [id number] [facility] Results This patient has no known results.
[2021-12-15 07:36] LABS: Hematocrit 41.3 % (39.6-49.0); Lymphocytes % 6.7 % (15.3-44.8); MCV 88.4 fL (80-100); MPV 8.3 fL (7.6-11.3); RBC Red Blood Cell Count 4.67 M/uL (4.33-5.43)
[2021-12-15] MEDS ORDERED: ACETAMINOPHEN 500 MG TAB ONE (07:36)
[2021-12-15 07:41] LABS: Protime INR 1.39
[2021-12-15 07:46] LABS: Urine Blood 2+ (Negative); Urine Glucose Negative (Negative); Urine Protein 3+ (Negative); Urine Specific Gravity >=1.030 (1.005-1.030)
[2021-12-15 07:51] LABS: Albumin 3.5 g/dL (3.4-5.0); Bilirubin Total 1.8 mg/dL (0.2-1.0); Potassium 3.8 mmol/L (3.5-5.1); Protein, Total 7.5 g/dL (6.4-8.2)
[2021-12-15] MEDS ORDERED: MORPHINE 4 MG/ML SYR ONE (07:55)
[2021-12-15] MEDS ORDERED: ONDANSETRON 4 MG/2 ML VIAL ONE (07:55)
[2021-12-15 08:20] LABS: Urine RBC 20-50 /HPF (NONE SEEN)
[2021-12-15 08:21] LABS: Urine Bacteria 20-50 /HPF (NONE SEEN)
--- NOTE | 2021-12-15 08:54 | RAD REPORT ---
EXAM DESCRIPTION: RAD - Chest Single View - 12/15/2021 8:05 am CLINICAL HISTORY: FEVER Chest pain. COMPARISON: Chest Single View dated 03/03/2020; Chest Single View dated 02/15/2018; Chest Single View d ated 04/24/2016; CHEST SINGLE VIEW dated 07/30/2015 FINDINGS: Portable technique limits examination quality. The lungs are grossly clear. The heart is normal in size. No displaced fractures. IMPRESSION: No acute intrathoracic process suspected.
[2021-12-15] MEDS ORDERED: NA CHLORIDE 0.9% 50 ML ONE (09:22)
[2021-12-15] MEDS ORDERED: CEFTRIAXONE 1000 MG/VIAL ONE (09:22)
--- NOTE | 2021-12-15 10:03 | ER ---
Nurse's Notes [facility] Name: Jad Sanz Age: 46 yrs Sex: Male : 1975 Arrival Date: 12/15/2021 Time: 06:53 Bed 24 Private MD: Diagnosis: Severe sepsis without septic shock;Pyelonephritis acute Presentation: 12/15 07:10 Chief complaint: Patient states: Dysuria, urinary frequency, fever, chills, lower abd. ll1 pain, and nausea since Sunday. Fever 101.3 at home. Feels constipated. Coronavirus screen: Vaccine status: Patient reports receiving the 2nd dose of the covid vaccine. Client denies travel out of the [place] in the last 14 days. fever, headache, nausea. Ebola Screen: Patient denies travel to an Ebola-affected area in the 21 days before illness onset. Initial Sepsis Screen: Does the patient meet any 2 criteria? No. Patient's initial sepsis screen is negative. Does the patient have a suspected source of infection? Yes: Dysuria/Frequency/Urgency/UTI Acute abdominal pain. Risk Assessment: Do you want to hurt yourself or someone else? Patient reports no desire to harm self or others. Onset of symptoms was December 13, 2021. 07:10 Method Of Arrival: Ambulatory 1 07:10 Acuity: RONNI 2 ll1 Triage Assessment: 07:10 General: Appears uncomfortable, ill, Behavior is calm, cooperative, appropriate for ll1 age. Pain: Complains of pain in abdomen Pain currently is 8 out of 10 on a pain scale. Quality of pain is described as burning, aching. GI: Abdomen is round Reports lower abdominal pain, constipation, nausea. : Reports burning with urination, discharge, from penis that is bloody, yellow, pain with urination, urinary frequency. Historical: - Allergies: 07:09 NKA; ll1 - PMHx: 07:09 Gout; Hypertension; ll1 - Immunization history:: Adult Immunizations up to date. - Social history:: Smoking status: Patient denies any tobacco usage or history of. Screenin:09 Abuse screen: Denies threats or abuse. Nutritional screening: No deficits noted. ll1 Tuberculosis screening: No symptoms or risk factors identified. Fall Risk IV access (20 points). Total Mcgregor Fall Scale indicates No Risk (0-24 pts). Assessment: 08:19 Reassessment: No changes from previously documented assessment. Patient and/or family ll1 updated on plan of care and expected duration. Pain level reassessed. Patient is alert, oriented x 3, equal unlabored respirations, skin warm/dry/pink. Patient states feeling better. 09:00 Reassessment: No changes from previously documented assessment. gait steady to restroom.ll1 10:00 Reassessment: No changes from previously documented assessment. Patient and/or family ll1 updated on plan of care and expected duration. Pain level reassessed. Patient is alert, oriented x 3, equal unlabored respirations, skin warm/dry/pink. 11:00 Reassessment: No changes from previously documented assessment. Patient and/or family ll1 updated on plan of care and expected duration. Pain level reassessed. Patient is alert, oriented x 3, equal unlabored respirations, skin warm/dry/pink. 12:00 Reassessment: No changes from previously documented assessment. Patient and/or family ll1 updated on plan of care and expected duration. Pain level reassessed. Patient is alert, oriented x 3, equal unlabored respirations, skin warm/dry/pink. 13:00 Reassessment: No changes from previously documented assessment. Patient and/or family ll1 updated on plan of care and expected duration. Pain level reassessed. Patient is alert, oriented x 3, equal unlabored respirations, skin warm/dry/pink. 14:00 Reassessment: No changes from previously documented assessment. Patient and/or family ll1 updated on plan of care and expected duration. Pain level reassessed. Patient is alert, oriented x 3, equal unlabored respirations, skin warm/dry/pink. 14:08 GI: Bowel sounds present X 4 quads. Abd is soft and non tender X 4 quads. ll1 Vital Signs: 07:10 BP 142 / 88; Pulse 96; Resp 26; Temp 100.8; Pulse Ox 95% on R/A; Weight 178.26 kg (M); ll1 Height 6 ft. 2 in. (187.96 cm); Pain 8/10; 07:55 BP 140 / 75; Pulse 98; Resp 24; Pulse Ox 98% on R/A; ll1 08:19 Resp 22; ll1 09:35 BP 79 / 52 LA (auto/reg); Pulse 87; Resp 20; Temp 100.8; Pulse Ox 95% on R/A; ll1 09:37 BP 102 / 54 LA (man/); ll1 11:06 BP 112 / 60; Pulse 85; Resp 19; Pulse Ox 95% on R/A; ll1 11:59 Temp 100.8(O); ll1 14:05 BP 102 / 52; Pulse 89; Resp 22; Temp 99.7; Pulse Ox 100% on R/A; Pain 8/10; ll1 07:10 Body Mass Index 50.46 (178.26 kg, 187.96 cm) ll1 09:35 Dr. Gibson notified. ll1 09:37 Dr. Gibson notified. ll1 ED Course: 06:53 Patient arrived in ED. bp1 07:07 Walker Gibson DO is Attending Physician. ms3 07:09 Mirta Nevarez, JEVON is Primary Nurse. ll1 07:09 Arm band placed on Patient placed in an exam room, on a stretcher. ll1 07:20 Inserted saline lock: 20 gauge in right antecubital area, using aseptic technique. ll1 Blood collected. 07:36 COVID-19 SARS RT PCR (Document "Date of Onset" if Symptomatic) Sent. ll1 08:07 Chest Single View XRAY In Process Unspecified. EDMS 08:08 Triage completed. ll1 08:10 Patient has correct armband on for positive identification. Bed in low position. Call 1 light in reach. Side rails up X 1. Pulse ox on. NIBP on. 10:02 August Stewart is Hospitalizing Provider. ms3 10:55 CT Abd/Pelvis - Without Cont (PO Contrast Only) In Process Unspecified. EDMS 14:07 4th floor nurse unavailable to take report. Currently taking report on another patient. ll1 14:08 No provider procedures requiring assistance completed. Patient admitted, IV remains in ll1 place. Administered Medications: 07:30 Drug: Acetaminophen 1000 mg Route: PO; ll1 08:38 Follow up: Response: No adverse reaction; Temperature is decreased ll1 07:54 Drug: Zofran (Ondansetron) 4 mg Route: IVP; Site: right antecubital; ll1 08:38 Follow up: Response: No adverse reaction; Nausea is decreased ll1 07:55 Drug: morphine 4 mg Route: IVP; Infused Over: 4 mins; Site: right antecubital; 1 08:38 Follow up: Response: No adverse reaction; Pain is decreased; RASS: Alert and Calm (0) 1 09:29 Drug: Rocephin (cefTRIAXone) 1 grams Route: IV; Rate: calculated rate; Site: right ll1 antecubital; 09:57 Follow up: Response: No adverse reaction; IV Status: Completed infusion; IV Intake: [id number] 10:27 Drug: NS 0.9% 1000 ml Route: IV; Rate: 1000 ml; Site: right antecubital; ll1 13:57 Follow up: Response: No adverse reaction; IV Status: Completed infusion; IV Intake: ll1 1000ml Medication: 08:09 VIS not applicable for this client. 1 Intake: 09:57 IV: 50ml; Total: 50ml. ll1 13:57 IV: 1000ml; Total: 1050ml. [facility] Outcome: 10:02 Decision to Hospitalize by Provider. ms3 14:22 Admitted to Tele accompanied by tech, via wheelchair, room 409, with chart, Report 1 called to Lisseth Garcia RN on 14:22 Condition: stable 15:04 Patient left the ED. [facility] Signatures: Dispatcher [employer] Mirta Cool, RN RN 1 Walker Gibson DO DO ms3 Kala Olmos bp1
--- NOTE | 2021-12-15 10:03 | EDPHYS ---
Physician Documentation [facility] Name: Jad Sanz Age: 46 yrs Sex: Male : 1975 Arrival Date: 12/15/2021 Time: 06:53 Bed 24 Private MD: ED Physician Walker Gibson HPI: 12/15 07:15 This 46 yrs old Male presents to ER via Unassigned with complaints of flank ms3 pain, dysuria. 07:15 The patient presents with urinary symptoms, dysuria, urinary frequency, hesitancy to ms3 initiate urine stream. Onset: The symptoms/episode began/occurred last night. Modifying factors: The symptoms are alleviated by Improved with T#3. Associated signs and symptoms: The patient has no apparent associated signs or symptoms. Severity of symptoms: At their worst the symptoms were severe, in the emergency department the symptoms have improved, a " 8" out of "10". Historical: - Allergies: 07:09 NKA; ll1 - PMHx: 07:09 Gout; Hypertension; ll1 - Immunization history:: Adult Immunizations up to date. - Social history:: Smoking status: Patient denies any tobacco usage or history of. ROS: 07:15 Constitutional: Negative for fever, and chills. Neck: Negative for injury, pain, and ms3 swelling, Cardiovascular: Negative for chest pain, and palpitations. Respiratory: Negative for shortness of breath, cough, wheezing, and pleuritic chest pain, Abdomen/GI: Negative for abdominal pain, nausea, vomiting, diarrhea, and constipation, : dysruia, frequency MS/Extremity: Negative for injury and deformity, Skin: Negative for injury, rash, and discoloration, Allergy/Immunology: Negative for hives, rash, and allergies. 07:15 All other systems are negative. Exam: 07:15 Constitutional: This is a well developed, well nourished patient who is awake, alert, ms3 and in no acute distress. Head/Face: Normocephalic, atraumatic. Neck: Trachea midline, no cervical lymphadenopathy. Supple, full range of motion without nuchal rigidity, or vertebral point tenderness. No Meningismus. Chest/axilla: Normal chest wall appearance and motion. Nontender with no deformity. Cardiovascular: Regular rate and rhythm with a normal S1 and S2. No gallops, murmurs, or rubs. Normal PMI, no JVD. No pulse deficits. Respiratory: Lungs have equal breath sounds bilaterally, clear to auscultation and percussion. No rales, rhonchi or wheezes noted. No increased work of breathing, no retractions or nasal flaring. Skin: Warm, dry with normal turgor. Normal color with no rashes, no lesions, and no evidence of cellulitis. MS/ Extremity: Pulses equal, no cyanosis. Neurovascular intact. Full, normal range of motion. 07:15 Abdomen/GI: Inspection: abdomen appears normal, Bowel sounds: normal, Palpation: mild abdominal tenderness, in the right lower quadrant and left lower quadrant. Vital Signs: 07:10 BP 142 / 88; Pulse 96; Resp 26; Temp 100.8; Pulse Ox 95% on R/A; Weight 178.26 kg (M); ll1 Height 6 ft. 2 in. (187.96 cm); Pain 8/10; 07:55 BP 140 / 75; Pulse 98; Resp 24; Pulse Ox 98% on R/A; ll1 08:19 Resp 22; ll1 09:35 BP 79 / 52 LA (auto/reg); Pulse 87; Resp 20; Temp 100.8; Pulse Ox 95% on R/A; ll1 09:37 BP 102 / 54 LA (man/); ll1 11:06 BP 112 / 60; Pulse 85; Resp 19; Pulse Ox 95% on R/A; ll1 11:59 Temp 100.8(O); ll1 14:05 BP 102 / 52; Pulse 89; Resp 22; Temp 99.7; Pulse Ox 100% on R/A; Pain 8/10; ll1 07:10 Body Mass Index 50.46 (178.26 kg, 187.96 cm) ll1 09:35 Dr. Gibson notified. ll1 09:37 Dr. Gibson notified. ll1 MDM: 07:15 Patient medically screened. ms3 07:15 Differential diagnosis: nonspecific abdominal pain, UTI, Sepsis vs Pyelo vs Kidney ms3 stone. 09:35 ED course: Patient meets severe sepsis criteria at this time. Source: Pyelonephritis ms3 SIRS. Fever, HR, RR. End organ dysfunction: Single SBP <90 mm Hg. Blood cultures obtained prior to abx. LA less than 2. Rocephin Abx ordered.. 10:02 Data reviewed: vital signs, nurses notes, lab test result(s), EKG, radiologic studies, ms3 and as a result, I will admit patient. Counseling: I had a detailed discussion with the patient and/or guardian regarding: the historical points, exam findings, and any diagnostic results supporting the discharge/admit diagnosis, lab results, radiology results, the need for further work-up and treatment in the hospital. ED course: Discussed case with Dr Stewart and he accepts patient as admission. Discussed plan with patient and he understands/ agrees with plan. All questions answered. Patient remains in stable condition.. 12/15 07:14 Order name: Blood Culture Adult (2) ms3 12/15 07:14 Order name: CBC with Diff; Complete Time: 08:51 ms3 12/15 07:14 Order name: CMP; Complete Time: 08:51 ms3 12/15 07:14 Order name: Lactate; Complete Time: 08:51 ms3 12/15 07:14 Order name: Protime (+inr); Complete Time: 08:51 ms3 12/15 07:14 Order name: Ptt, Activated; Complete Time: 08:51 ms3 12/15 07:14 Order name: Urine Culture ms3 12/15 07:14 Order name: Urine Microscopic Only; Complete Time: 08:51 ms3 12/15 07:14 Order name: Chest Single View XRAY; Complete Time: 09:50 ms3 12/15 07:14 Order name: COVID-19 SARS RT PCR (Document "Date of Onset" if Symptomatic); Complete ms3 Time: 09:50 12/15 07:21 Order name: CT Abd/Pelvis - Without Cont (PO Contrast Only); Complete Time: 11:31 ms3 12/15 07:46 Order name: Urine Dipstick-Ancillary; Complete Time: 08:51 EDMS 12/15 07:47 Order name: Glucose, Ancillary Testing; Complete Time: 08:51 EDMS 12/15 14:21 Order name: Lactate EDMS 12/15 07:14 Order name: Accucheck; Complete Time: 07:36 ms3 12/15 07:14 Order name: IV Saline Lock - Large Bore; Complete Time: 07:28 ms3 12/15 07:14 Order name: Labs collected and sent; Complete Time: 07:28 ms3 12/15 07:14 Order name: O2 Per Protocol; Complete Time: 07: ms3 12/15 07:14 Order name: O2 Sat Monitoring; Complete Time: 07:28 ms3 12/15 07:14 Order name: Urine Dipstick-Ancillary (obtain specimen); Complete Time: 07:28 ms3 Administered Medications: 07:30 Drug: Acetaminophen 1000 mg Route: PO; ll1 08:38 Follow up: Response: No adverse reaction; Temperature is decreased ll1 07:54 Drug: Zofran (Ondansetron) 4 mg Route: IVP; Site: right antecubital; ll1 08:38 Follow up: Response: No adverse reaction; Nausea is decreased ll1 07:55 Drug: morphine 4 mg Route: IVP; Infused Over: 4 mins; Site: right antecubital; ll1 08:38 Follow up: Response: No adverse reaction; Pain is decreased; RASS: Alert and Calm (0) ll1 09:29 Drug: Rocephin (cefTRIAXone) 1 grams Route: IV; Rate: calculated rate; Site: right ll1 antecubital; 09:57 Follow up: Response: No adverse reaction; IV Status: Completed infusion; IV Intake: [id number] 10:27 Drug: NS 0.9% 1000 ml Route: IV; Rate: 1000 ml; Site: right antecubital; ll1 13:57 Follow up: Response: No adverse reaction; IV Status: Completed infusion; IV Intake: ll1 1000ml Disposition Summary: 12/15/21 10:02 Hospitalization Ordered Hospitalization Status: Inpatient Admission ms3 Provider: August Stewart ms3 Location: Telemetry/[facility]Sur (Inpatient) ms3 Condition: Stable ms3 Problem: new ms3 Symptoms: are unchanged ms3 Bed/Room Type: Standard ms3 Room Assignment: 409(12/15/21 13:35) dw Diagnosis - Severe sepsis without septic shock ms3 - Pyelonephritis acute ms3 Forms: - Medication Reconciliation Form ms3 - SBAR form ms3 Signatures: Dispatcher [employer] Janet Zepeda RN RN dw Lewis, Lynsay, RN RN ll1 Walker Gibson DO DO ms3 Corrections: (The following items were deleted from the chart) 08: 07:14 Cardiac monitoring ordered. ms3 ll1 08:11 07:14 EKG - Nurse/Tech ordered. ms3 ll1 13:35 10:02 ms3 dw
[2021-12-15] MEDS ORDERED: NA CHLORIDE 0.9% 1,000 ML ONE (10:20)
--- NOTE | 2021-12-15 11:08 | RAD REPORT ---
EXAM DESCRIPTION: CT - Abdomen Pelvis Wo Contrast - 12/15/2021 10:53 am CLINICAL HISTORY: Abdominal pain. Flank pain COMPARISON: [facility] Protocol dated 11/28/2018 TECHNIQUE: CT imaging of the abdomen and pelvis was performed without contrast. Solid organ, bowel a nd vascular assessment is limited due to lack of IV and oral contrast. All CT scans are performed using dose optimization technique as appropriate and may include automated exposure control or mA/KV adjustment according to patient size. FINDINGS: The lower lung doan are clear. The liver, spleen, pancreas, adrenal glands and kidneys are within normal limits for a limited non-co ntrast examination.Moderate fat containing umbilical hernia. No bowel obstruction, free air, free fluid or abscess. The appendix is normal. Mild inflammation is seen in the pelvis surrounding the prostate gland and urinary bladder. Prostate gland is enlarged. The osseous structures are within normal limits. IMPRESSION: Mild inflammation is seen surrounding the urinary bladder and prostate gland. This could indicate prostatitis or cystitis. A limited non-contrast examination was performed as detailed.
[2021-12-15] MEDS ORDERED: HYDROCODONE/APAP 5/325 MG TAB PO ONE (11:45)
[2021-12-15] MEDS ORDERED: HYDROCODONE/APAP 5/325 MG TAB ONE (11:56)
--- NOTE | 2021-12-15 13:00 | P.HP ---
Certification for Inpatient Patient admitted to: Inpatient With expected LOS: >2 Midnights Practitioner: I am a practitioner with admitting privileges, knowledge of patient current condition, hospital course, and medical plan of care. Services: Services provided to patient in accordance with Admission requirements found in Title 42 Section 412.3 of the Code of Federal Regulations Patient History Date of Service: 12/15/21 Reason for admission: Fever and chills History of Present Illness: 46-year-old morbidly obese gentleman with a history of hypertension presents to the emergency department with a complaint of fever and chills, pain in the perineum and dysuria of 1 day duration. He reports associated rigors, no nausea or vomiting, no back pain or flank pain. Fever of 101 recorded in the ED, patient also tachycardic with heart rate greater than 90. He has leukocytosis and meets criteria for sepsis. Lactate level normal. Chest x-ray unremarkable. Patient reports history of kidney stones in the past. CT abdomen pelvis showed normal kidneys with no stones but demonstrated enlarged prostate with inflammation around the prostate gland. Patient diagnosed with sepsis and acute prostatitis. According to the ED provider, his blood pressure dropped transiently. This occurred after he was given a dose of IV morphine. Sepsis protocol initiated in the ED, patient given a dose of IV Rocephin and IV fluid. He is admitted for further management. Allergies No Known Allergies Allergy (Verified 04/24/16 06:40) Home Medications: Aspirin [Aspirin EC 81 MG] 81 mg PO DAILY #90 tablet. 04/24/16 Omeprazole Magnesium [Prilosec Otc] 20 mg PO DAILY #30 tablet. 04/24/16 lisinopriL [Lisinopril] 10 mg PO DAILY #30 tablet 04/24/16 - Past Medical/Surgical History Diabetic: No -: Hypertension -: Gout -: Obesity -: Snoring likely obstructive sleep apnea -: Lasik surgery Psychosocial/ Personal History: He is 18 years, has 7 children, he works construction. - Family History Father -: Hypertension, Diabetes, Cancer Mother -: Hypertension, Diabetes Brother -: Hypertension, Diabetes Sister -: Hypertension, Diabetes - Social History Smoking Status: Never smoker Alcohol use: No CD- Drugs: No Caffeine use: Yes Place of Residence: Home Review of Systems Other: No nausea vomiting or diarrhea. Patient was complaining of headache. Denies abdominal pain. Except as documented, all other systems reviewed and negative. Physical Examination - Physical Exam General: Alert, In no apparent distress, Oriented x3, Obese HEENT: PERRLA, Mucous membr. moist/pink, Sclerae nonicteric Neck: Supple, JVD not distended Respiratory: Clear to auscultation bilaterally, Normal air movement Cardiovascular: No edema, Regular rate/rhythm, Normal S1 S2 Gastrointestinal: Normal bowel sounds, Soft and benign, Non-distended Musculoskeletal: No swelling, No tenderness Integumentary: No rashes, No erythema Neurological: Normal speech, Normal strength at 5/5 x4 extr, Cranial nerves 3-12 intact Lymphatics: No axilla or inguinal lymphadenopathy - Studies Laboratory Data (last 24 hrs) 12/15/21 07:15: PT 15.4 H, INR 1.39, APTT 31.4 12/15/21 07:15: Sodium 135 L, Potassium 3.8, BUN 16, Creatinine 1.14, Glucose 136 H, Total Bilirubin 1.8 H, AST 30, ALT 39, Alkaline Phosphatase 73 12/15/21 07:15: WBC 14.3 H, Hgb 14.1, Hct 41.3, Plt Count 132 L Assessment and Plan - Problems (Diagnosis) (1) Sepsis Current Visit: Yes Status: Acute (2) Acute prostatitis Current Visit: Yes Status: Acute (3) Morbid obesity Current Visit: Yes Status: Acute (4) Gout Current Visit: Yes Status: Acute - Plan Patient is currently normotensive. Admit to the medical floor Sepsis protocol initiated Started Levaquin with gentamicin synergy for acute prostatitis. Follow urine culture blood cultures. Supportive measures with Tylenol as needed for pain and fever, antiemetics as needed, [place] as needed for pain. Hold home antihypertensives given brief hypotension Continue home meds for gout. - Advance Directives Does patient have a Living Will: No Does patient have a Durable POA for Healthcare: No
[2021-12-15] MEDS ORDERED: ONDANSETRON 4 MG/2 ML VIAL IV PRN (13:20)
[2021-12-15] MEDS ORDERED: NA CHLORIDE 0.9% 500 ML IV ONE (13:20)
[2021-12-15] MEDS: Levofloxacin 750mg IV 750 MG/150 ML BAG IV SCH (13:47)
[2021-12-15] MEDS ORDERED: Levofloxacin 750mg IV 750 MG/150 ML BAG IV ONE (13:50)
[2021-12-15] MEDS ORDERED: GENTAMICIN IV SCH (14:00)
[2021-12-15] MEDS ORDERED: NA CHLORIDE 0.9% IV SCH (14:00)
[2021-12-15] MEDS: NA CHLORIDE 0.9% 1,000 ML IV SCH ×2 (15:13→23:09)
[2021-12-15 15:38] VITALS: BMI 50.4
[2021-12-15] MEDS: ACETAMINOPHEN 500 MG TAB PO PRN (15:45)
[2021-12-15] MEDS: HYDROCODONE/APAP 5/325 MG TAB PO PRN ×2 (17:26→22:40)
[2021-12-16] MEDS: HYDROCODONE/APAP 5/325 MG TAB PO PRN ×3 (04:00→21:10)
[2021-12-16 04:34] LABS: Absolute Lymphocytes (CBC) 1.1 K/uL (0.7-4.9); Hematocrit 38.9 % (39.6-49.0); MCV 89.9 fL (80-100); MPV 8.9 fL (7.6-11.3); RBC Red Blood Cell Count 4.32 M/uL (4.33-5.43)
[2021-12-16 04:46] LABS: Magnesium 1.9 mg/dL (1.8-2.4); Phosphorus 1.9 mg/dL (2.5-4.9); Potassium 3.5 mmol/L (3.5-5.1)
[2021-12-16] MEDS ORDERED: POTASSIUM PHOS IN 0.9 % NACL 15 MMOL/250 ML BAG IV ONE ×2 (05:02→09:00)
[2021-12-16] MEDS: NA CHLORIDE 0.9% 1,000 ML IV SCH (08:25)
[2021-12-16] MEDS: ENOXAPARIN 40 MG/0.4 ML SQ SCH ×2 (08:26→08:27)
[2021-12-16] MEDS: Levofloxacin 750mg IV 750 MG/150 ML BAG IV SCH (13:45)
--- NOTE | 2021-12-16 19:29 | P.PN ---
Subjective Date of Service: 12/16/21 Chief Complaint: Fever and chills Patient states he feels better compared to yesterday. He still has dysuria but the fever and chills have resolved. Physical Examination - Vital Signs Temperature: 99.8 F Blood Pressure: 138/74 Pulse: 89 Respirations: 20 Pulse Ox (%): 98 - Physical Exam General: Alert, In no apparent distress, Oriented x3 HEENT: Mucous membr. moist/pink Neck: Supple, JVD not distended Respiratory: Clear to auscultation bilaterally, Normal air movement Cardiovascular: No edema, Regular rate/rhythm, Normal S1 S2 Gastrointestinal: Normal bowel sounds, Soft and benign, Non-distended, No tenderness Musculoskeletal: No swelling, No tenderness Integumentary: No rashes, No cyanosis Neurological: Normal strength at 5/5 x4 extr Assessment And Plan - Current Problems (Diagnosis) (1) Sepsis Current Visit: Yes Status: Acute (2) Acute prostatitis Current Visit: Yes Status: Acute (3) Morbid obesity Current Visit: Yes Status: Acute (4) Gout Current Visit: Yes Status: Acute - Plan Patient is clinically better Sepsis resolved Urine culture growing gram-negative rods. Blood cultures: No growth Continue IV Levaquin. Patient given IV gentamicin yesterday Follow urine culture.. Supportive measures with Tylenol as needed for pain and fever, antiemetics as needed, [place] as needed for pain. Start Flomax for enlarged prostate and dysuria. Continue home meds for gout.
[2021-12-16] MEDS: TAMSULOSIN 0.4 MG SR CAP PO SCH (21:08)
[2021-12-16] MEDS: PHENAZOPYRIDINE 100MG TAB PO PRN (21:08)
[2021-12-17] MEDS: NA CHLORIDE 0.9% 1,000 ML IV SCH ×3 (00:44→15:20)
[2021-12-17 04:01] LABS: Absolute Lymphocytes (CBC) 0.8 K/uL (0.7-4.9); Hematocrit 38.5 % (39.6-49.0); Lymphocytes % 9.8 % (15.3-44.8); MCV 89.4 fL (80-100); MPV 8.9 fL (7.6-11.3); RBC Red Blood Cell Count 4.31 M/uL (4.33-5.43)
[2021-12-17 04:19] LABS: Phosphorus 2.5 mg/dL (2.5-4.9); Potassium 3.6 mmol/L (3.5-5.1)
[2021-12-17] MEDS: PHENAZOPYRIDINE 100MG TAB PO PRN (05:32)
[2021-12-17] MEDS ORDERED: MAGNESIUM SULFATE 1 gm IVPB 1 GM/100 ML BAG IV ONE (06:00)
[2021-12-17] MEDS ORDERED: POTASSIUM PHOS IN 0.9 % NACL 15 MMOL/250 ML BAG IV ONE (08:00)
[2021-12-17] MEDS: ENOXAPARIN 40 MG/0.4 ML SQ SCH (09:00)
[2021-12-17] MEDS: ACETAMINOPHEN 500 MG TAB PO PRN (09:13)
--- NOTE | 2021-12-17 11:39 | P.DS ---
Admission Date: 12/15/21 Discharge Date: 12/17/21 Disposition: ROUTINE DISCHARGE Discharge Condition: FAIR Reason for Admission: Fever and chills - Problems (1) Sepsis Current Visit: Yes Status: Acute (2) Acute prostatitis Current Visit: Yes Status: Acute (3) Morbid obesity Current Visit: Yes Status: Acute (4) Gout Current Visit: Yes Status: Acute Brief History of Present Illness: 46-year-old morbidly obese gentleman with a history of hypertension presents to the emergency department with a complaint of fever and chills, pain in the perineum and dysuria of 1 day duration. He reports associated rigors, no nausea or vomiting, no back pain or flank pain. Fever of 101 recorded in the ED, patient also tachycardic with heart rate greater than 90. He has leukocytosis and meets criteria for sepsis. Lactate level normal. Chest x-ray unremarkable. Patient reports history of kidney stones in the past. CT abdomen pelvis showed normal kidneys with no stones but demonstrated enlarged prostate with inflammation around the prostate gland. Patient diagnosed with sepsis and acute prostatitis. According to the ED provider, his blood pressure dropped transiently. This occurred after he was given a dose of IV morphine. Sepsis protocol initiated in the ED, patient given a dose of IV Rocephin and IV fluid. He was admitted for further management. Hospital Course: Admitted to the medical floor and treated with aggressive antibiotic therapy-IV Levaquin and gentamicin. He received a single dose of gentamicin for synergy. Urine culture grew pansensitive E. coli. Patient experienced dysuria which was managed with Flomax and phenazopyridine. His vitals were stable, he clinically improved with treatment. Patient is tolerating diet. He is clinically stable for discharge. He is discharged with oral Levaquin for 4 weeks. He will need a repeat UA within 7 days to assess for response to antibiotic treatment. Vital Signs/Physical Exam: Temp Pulse Resp BP Pulse Ox 97.8 F 74 20 123/80 97 12/17/21 08:00 12/17/21 08:00 12/17/21 08:00 12/17/21 08:00 12/17/21 08:00 General: Alert, In no apparent distress, Oriented x3 HEENT: Mucous membr. moist/pink Neck: JVD not distended Respiratory: Normal air movement Cardiovascular: No edema, Regular rate/rhythm, Normal S1 S2 Gastrointestinal: Normal bowel sounds, Soft and benign, Non-distended, No tenderness Musculoskeletal: No swelling Integumentary: No rashes Neurological: Normal strength at 5/5 x4 extr Laboratory Data at Discharge: WBC 8.2 K/uL (4.3-10.9) D 12/17/21 03:24 Hgb 13.3 g/dL (13.6-17.9) L 12/17/21 03:24 Hct 38.5 % (39.6-49.0) L 12/17/21 03:24 Plt Count 111 K/uL (152-406) L 12/17/21 03:24 PT 15.4 SECONDS (9.5-12.5) H 12/15/21 07:15 INR 1.39 12/15/21 07:15 APTT 31.4 SECONDS (24.3-36.9) 12/15/21 07:15 Sodium 139 mmol/L (136-145) 12/17/21 03:24 Potassium 3.6 mmol/L (3.5-5.1) 12/17/21 03:24 BUN 12 mg/dL (7-18) 12/17/21 03:24 Creatinine 0.94 mg/dL (0.55-1.3) 12/17/21 03:24 Glucose 103 mg/dL (74-106) 12/17/21 03:24 Phosphorus 2.5 mg/dL (2.5-4.9) 12/17/21 03:24 Magnesium 1.8 mg/dL (1.8-2.4) 12/17/21 03:24 Total Bilirubin 1.8 mg/dL (0.2-1.0) H 12/15/21 07:15 AST 30 U/L (15-37) 12/15/21 07:15 ALT 39 U/L (12-78) 12/15/21 07:15 Alkaline Phosphatase 73 U/L (45-117) 12/15/21 07:15 Home Medications: Allopurinol 300 mg PO DAILY 12/15/21 lisinopriL [Lisinopril] 40 mg PO DAILY 12/15/21 Levofloxacin [Levaquin] 500 mg PO DAILY #28 tablet 12/17/21 Tamsulosin [Flomax*] 0.4 mg PO BEDTIME #30 cap 12/17/21 New Medications: Tamsulosin [Flomax*] 0.4 mg PO BEDTIME #30 cap Levofloxacin [Levaquin] 500 mg PO DAILY #28 tablet Physician Discharge Instructions: You need a repeat urinalysis and culture within 1 week. Diet: AHA Activity: Ad yon Followup: Bin Campbell DO [Primary Care Provider] - (Call to schedule appointment.) Time spent managing pt's care (in minutes): 36
[2021-12-17] MEDS: HYDROCODONE/APAP 5/325 MG TAB PO PRN (11:53)
[2021-12-17 13:48] VITALS: O2SAT 97
[2021-12-17] MEDS: Levofloxacin 750mg IV 750 MG/150 ML BAG IV SCH (14:00)
[2021-12-17 14:02] VITALS: BP 136/82; TEMP 97.4
== END 2021-12-17 15:20 | disposition home or self-care (01) | DRG 872 ==
LOC: ER 06:50 → ERHOLD 12:31 → 4TH 14:22 → 2ND 12-16 19:39
PROVIDERS: ADMIT Internal Medicine; ATTEND Internal Medicine
DX: A41.9 Sepsis, unspecified organism (principal); N41.0 Acute prostatitis; Z68.43 Body mass index [BMI] 50.0-59.9, adult; E66.01 Morbid (severe) obesity due to excess calories; B96.20 Unspecified Escherichia coli [E. coli] as the cause of diseases classified elsewhere; I10 Essential (primary) hypertension; M10.9 Gout, unspecified; Z20.822 Contact with and (suspected) exposure to COVID-19
CPT/HCPCS: 36415; 71045; 74176; 80048; 80053; 80170; 81003; 81015; 82947; 83605; 83735; 84100; 85025; 85610; 85730; 87040; 87077; 87086; 87088; 87186; 94760; 96361; 96365; 96375; 99285; J1580; J1650; J2405; J3475; J7030; U0003

== ENCOUNTER 2022-09-16 22:35 | Emergency (ER) | payer SELFPAY ==
--- OUTSIDE RECORDS SUMMARY | 2022-09-16 22:38 | XMS REPORT | Continuity of Care Document ---
:1975 Author Organization [facility] t Address [address] [facility] [address] [place] [id number] Care Team Providers Name Role Phone Bin Campbell Attending Clinician Unavailable Balitbit_R Attending Clinician Unavailable GC_SEFP_Rivera_A Attending Clinician Unavailable Balitbit_R Admitting Clinician Unavailable GC_SEFP_Rivera_A Admitting Clinician Unavailable Payers Payer Name Policy Type Policy Number Effective Date Expiration Date Sunday [employer] [place] Problems Condition Condition Condition Status Onset Resolution Last Treating Co mments Source Name Details Category Date Date Treatment Clinician Date Gout Gout Problem Active [facility] -08 Family 00:00: Practic 00 e Morbid Morbid Problem Active [facility] obesity Obesity 02-06 Family 00:00: Practic 00 e Obstructiv Obstructiv Problem Active [facility] Sleep 02-06 [facility] apnea of Apnea of 00:00: Practi c adult Adult 00 e Essential Essential Problem Active Nicole mi hypertensi Hypertensi 02-06 Fa khalida on on 00:00: Practic 00 e Benign Benign Problem Active [facility] prostatic Prostatic 02-06 Fami ly hyperplasi Hyperplasi 00:00: Pr actic a with a with 00 e outflow Outflow obstructio Obstructio n n Allergies, Adverse Reactions, Alerts This patient has no known allergies or adverse reactions. Social History Smoking Status Start Date Stop Date Source Never Smoker [facility] Medications Ordered Filled Start Stop Current Ordering Indication Dosage Frequency Signature Comments Components Source Medication Medication Date Date Medication? Clinician (SIG) Name Name allopurinol allopurinol No allopurino [place] 300 mg 300 mg l 300 mg Family tablet TAKE tablet TAKE tablet Practic ONE (1) ONE (1) TAKE ONE e TABLET(S) TABLET(S) (1) BY MOUTH BY MOUTH TABLET(S) ONCE A DAY. ONCE A DAY. BY MOUTH ONCE A DAY. doxycycline doxycycline No 1capsul Q1D doxycyclin [facility] hyclate 100 hyclate 100 e(s) e hyclate Family mg capsule mg capsule 100 mg P ractic Take 1 Take 1 capsule e capsule capsule Take 1 every day every day capsule by oral by oral every day route. route. by oral route. finasteride finasteride No 1 Q1D finasterid [facility] 5 mg tablet 5 mg tablet e 5 mg Family Take 1 Take 1 tablet Practic tablet tablet Take 1 e every day every day tablet by oral by oral every day route. route. by oral route. lisinopril lisinopril No lisinopril [facility] 40 mg 40 mg 40 mg Family tablet TAKE tablet TAKE tablet Practic 1 TABLET BY 1 TABLET BY TAKE 1 e MOUTH ONCE MOUTH ONCE TABLET BY DAILY DAILY MOUTH ONCE DAILY tamsulosin tamsulosin tamsulosin [facility] 0.4 mg 0.4 mg 0.4 mg Family capsule capsule capsule Practi c TAKE ONE TAKE ONE TAKE ONE e (1) (1) (1) CAPSULE(S) CAPSULE(S) CAPSULE(S) BY MOUTH AT BY MOUTH AT BY MOUTH BEDTIME. BEDTIME. AT BEDTIME. Vital Signs Vital Name Observation Time Observation Value Comments Source BP Diastolic 2022-02-06 00:00:00 84 mm[Hg] [facility] Height 2022-02-06 00:00:00 74 [in_i] [facility] BMI (Body Mass 2022-02-06 00:00:00 50.8 kg/m2 [facility] BP Systolic 2022-02-06 00:00:00 152 mm[Hg] [facility] Body Weight 2022-02-06 00:00:00 396 [lb_av] [facility] Procedures Procedure Date / Time Performed Performing Clinician [facility] e home sleep study 2022-02-06 00:00:00 [facility] Start End Encounter Admission Attending Care Care Encounter Source Date/Time Date/Time Type Type Clinicians Facility Department ID 2022-08-31 Outpatient Adrian [facility] [id number] Common 10:31:00 [facility] [id number] [facility] 2022-08-30 Outpatient Campbell, STLMLC STLMLC [id number] Common 14:02:01 Bin [facility] 2022-04-04 Outpatient Campbell, STLMLC STLMLC [id number] Common 08:39:01 Bin [facility] 2022-01-10 Outpatient Campbell, STLMLC STLMLC [id number] Common 12:55:01 Bin [facility] 2021-11-03 Outpatient Campbell, STLMLC STLMLC [id number] Common 15:25:01 Bin [facility] 2021-09-07 Outpatient Campbell, STLMLC STLMLC [id number] Common 10:39:03 Bin [facility] 2021-07-27 Outpatient Campbell, STLMLC STLMLC Common 14:24:18 Bin [id number] [facility] 2021-07-27 Outpatient Campbell, STLMLC STLMLC Common 14:22:53 Bin [id number] [facility] 2021-07-27 Outpatient Campbell, STLMLC STLMLC Common 12:39:48 Bin [facility] 2021-07-27 Outpatient Campbell, STLMLC STLMLC Common 12:33:07 Bin [facility] 2021-07-27 Outpatient Campbell, STLMLC STLMLC Common 12:28:27 Bin [id number] [facility] 2021-07-27 Outpatient Campbell, STLMLC STLMLC [id number] Common 12:28:02 Bin [id number] [facility] 2021-07-27 Outpatient Campbell, STLMLC STLMLC [id number] Common 11:56:04 Bin [id number] [facility] 2021-07-27 Outpatient Campbell, STLMLC STLMLC [id number] Common 11:48:40 Bin [id number] [facility] 2022-05-12 2022-05-12 Outpatient Balitbit_R VFP VFP [id number] [facility] 00:00:00 00:00:00 [id number] Family Pract[facility] e 2022-02-06 2022-02-06 Outpatient Balitbit_R VFP VFP [id number] [facility] 00:00:00 00:00:00 [id number] Family Practic e 2022-02-06 2022-02-06 Pamela Sarah VFP [place] - [id number] [facility]:00[facility]00 [facility]00[facility] Caitie posada MD: [id number] Medical - Pract Medical VM_HOU_Beel e [facility] [address], [address], [place] [address] , Ph. 2022-02-05 2022-02-05 Outpatient Balitbit_R VFP VFP [id number] [facility] 00:00:00 00:00:00 [id number] Family Practic e 2022-01-26 2022-01-26 Outpatient GC_SEFP_Riv PRIV PRIV [id number] [facility] 00:00:00 00:00:00 era_A [id number] Medica l 2022-01-26 2022-01-26 Outpatient Balitbit_R VFP VFP [id number] [facility] 00:00:00 00:00:00 [id number] Family Practic e Results This patient has no known results.
[2022-09-16 23:35] LABS: Absolute Lymphocytes (CBC) 2.6 K/uL (0.7-4.9); Hematocrit 43.5 % (39.6-49.0); MCV 88.3 fL (80-100); MPV 8.2 fL (7.6-11.3); RBC Red Blood Cell Count 4.93 M/uL (4.33-5.43)
[2022-09-16 23:51] LABS: Albumin 3.8 g/dL (3.4-5.0); Bilirubin Total 0.4 mg/dL (0.2-1.0); Protein, Total 7.5 g/dL (6.4-8.2)
[2022-09-16] MEDS ORDERED: MORPHINE 4 MG/ML SYR ONE (23:51)
[2022-09-16] MEDS ORDERED: NA CHLORIDE 0.9% 500 ML ONE (23:51)
[2022-09-16] MEDS ORDERED: ONDANSETRON 4 MG/2 ML VIAL ONE (23:51)
[2022-09-17 00:02] LABS: Urine Blood Negative (Negative); Urine Glucose Negative (Negative); Urine Protein Negative (Negative); Urine Specific Gravity 1.025 (1.005-1.030); Urine pH 5.5 (5.0-7.0)
[2022-09-17 00:13] LABS: Urine Bacteria <20 /HPF (<20); Urine Mucus Slight /HPF (None Seen); Urine RBC <5 /HPF (None Seen)
[2022-09-17] MEDS ORDERED: LIDOCAINE 4% PATCH ONE (01:16)
--- NOTE | 2022-09-17 02:00 | ER ---
Nurse's Notes [facility] Name: Jad Sanz Age: 47 yrs Sex: Male : 1975 Arrival Date: 09/16/2022 Time: 22:43 Bed 4 Private MD: Diagnosis: Low back pain;Cough Presentation: 09/16 22:50 Chief complaint: Patient states: I have a pain on my left side of the groin area that ha1 radiates to the left side of my back, it only happens whenever I cough. Coronavirus screen: Vaccine status: Patient reports receiving the 2nd dose of the covid vaccine. Ebola Screen: No symptoms or risks identified at this time. Initial Sepsis Screen: Does the patient meet any 2 criteria? No. Patient's initial sepsis screen is negative. Does the patient have a suspected source of infection? No. Patient's initial sepsis screen is negative. Risk Assessment: Do you want to hurt yourself or someone else? Patient reports no desire to harm self or others. Onset of symptoms was September 14, 2022. 22:50 Method Of Arrival: Ambulatory 1 22:50 Acuity: RONNI 3 ha1 Triage Assessment: 22:54 General: Appears comfortable, Behavior is calm, cooperative. Pain: Complains of pain in ha1 left femoral area Pain radiates to right low back. Historical: - Allergies: 22:54 NKA; ha1 - Home Meds: 22:54 Colchicine Oral [Active]; lisinopril Oral [Active]; ha1 - PMHx: 22:54 Gout; Hypertension; ha1 - Immunization history:: Adult Immunizations up to date. - Social history:: Smoking status: Patient denies any tobacco usage or history of. Screenin:56 Abuse screen: Denies threats or abuse. Denies injuries from another. Nutritional ha1 screening: No deficits noted. Tuberculosis screening: No symptoms or risk factors identified. Assessment: 23:01 GI:. ha1 Vital Signs: 22:50 BP 157 / 96; Pulse 59; Resp 20 S; Temp 97.7; Pulse Ox 100% on R/A; Weight 172.37 kg; ha1 Height 6 ft. 2 in. ; Pain 10/10; 22:50 Body Mass Index 48.79 (172.37 kg, 187.96 cm) ha1 22:50 Pain Scale: Adult ha1 ED Course: 22:43 Patient arrived in ED. jj6 22:48 David Baig PA is PHCP. cp 22:48 Walker Gibson DO is Attending Physician. cp 22:54 Triage completed. ha1 23:00 Arm band placed on right wrist. ha1 23:24 Initial lab(s) drawn, by me, sent to lab. Inserted saline lock: 18 gauge in right jb4 antecubital area, using aseptic technique. Blood collected. 23:27 Michael Barragan, RN is Primary Nurse. jb4 23:28 CBC with Diff Sent. jb4 23:28 CMP Sent. jb4 23:28 Lipase Sent. jb4 09/17 00:22 CT Stone Protocol In Process Unspecified. EDMS 01:33 XRAY Chest (1 view) In Process Unspecified. EDMS Administered Medications: 00:04 Drug: morphine IVP or IV 4 mg Route: IVP; Infused Over: 4 mins; Site: right antecubital;pf1 00:04 Drug: Ondansetron IVP 4 mg Route: IVP; Site: right antecubital; pf1 00:04 Drug: NS 0.9% IV 500 ml Route: IV; Rate: 500 ml/hr; Site: right antecubital; pf1 01:27 Drug: Lidoderm Topical Patch 5 % (700 mg/patch) 1 patches Route: Topical; Site: jb4 affected area; Outcome: 01:59 Discharge ordered by . cp Signatures: Dispatcher [employer] EDMS David Baig PA PA cp Michael Barragan RN RN jb4 Anayeli Lee j6 Jen Jin RN RN 1 Yanely norton RN RN pf1
--- NOTE | 2022-09-17 02:00 | EDPHYS ---
Physician Documentation [facility] Name: Jad Sanz Age: 47 yrs Sex: Male : 1975 Arrival Date: 09/16/2022 Time: 22:43 Bed 4 Private MD: ED Physician Walker Gibson HPI: 09/16 23:15 This 47 yrs old Male presents to ER via Ambulatory with complaints of Low Back cp Pain, Abdominal Pain. 23:15 The patient presents with pain that is acute, with no known mechanism of injury. The cp symptoms are located in the left low back. The pain radiates to the left lower abdomen. Historical: - Allergies: 22:54 NKA; ha1 - Home Meds: 22:54 Colchicine Oral [Active]; lisinopril Oral [Active]; ha1 - PMHx: 22:54 Gout; Hypertension; ha1 - Immunization history:: Adult Immunizations up to date. - Social history:: Smoking status: Patient denies any tobacco usage or history of. ROS: 23:20 Constitutional: Negative for body aches, chills, fever, poor PO intake. cp 23:20 Abdomen/GI: Positive for abdominal pain, of the left lower abdomen. cp 23:20 Back: Positive for pain at rest, pain with movement, of the left lower back. Exam: 23:25 Constitutional: The patient appears in no acute distress, alert, awake, cp non-diaphoretic, non-toxic, well developed, well nourished, obese, uncomfortable. 23:25 Head/Face: Normocephalic, atraumatic. cp 23:25 Eyes: Periorbital structures: appear normal, Conjunctiva: normal, no exudate, no injection, Sclera: no appreciated abnormality, Lids and lashes: appear normal, bilaterally. 23:25 ENT: External ear(s): are unremarkable, Nose: is normal, Mouth: Lips: moist, Oral mucosa: moist, Posterior pharynx: Airway: no evidence of obstruction, patent. 23:25 Chest/axilla: Inspection: normal. 23:25 Cardiovascular: Rate: bradycardic, Rhythm: regular. 23:25 Respiratory: the patient does not display signs of respiratory distress, Respirations: normal, no use of accessory muscles, no retractions, labored breathing, is not present, Breath sounds: are clear throughout, no decreased breath sounds, no stridor, no wheezing. 23:25 Abdomen/GI: Inspection: obese Bowel sounds: active, all quadrants, Palpation: soft, in all quadrants, mild abdominal tenderness, in the left lower quadrant, rebound tenderness, is not appreciated, involuntary guarding, is not appreciated. 23:25 Back: pain, that is moderate, of the left low back, ROM is painful, with all movement, vertebral tenderness, is not appreciated. 23:25 Skin: cellulitis, is not appreciated, no rash present. 23:25 Neuro: Motor: moves all fours, strength is normal, Sensation: is normal. Vital Signs: 22:50 BP 157 / 96; Pulse 59; Resp 20 S; Temp 97.7; Pulse Ox 100% on R/A; Weight 172.37 kg; ha1 Height 6 ft. 2 in. ; Pain 10/10; 22:50 Body Mass Index 48.79 (172.37 kg, 187.96 cm) ha1 22:50 Pain Scale: Adult ha1 MDM: 22:57 Patient medically screened. 09/17 01:01 ED course: Pain improved, patient observed resting in exam room. 09/16 23:14 Order name: CBC with Diff; Complete Time: 00:17 cp 09/16 23:14 Order name: CMP; Complete Time: 00:17 cp 09/17 00:17 Interpretation: Normal except: GLUC 114; BUN 19; GLOB 3.7; A/G 1.0. 09/16 23:14 Order name: Lipase; Complete Time: 00:17 cp 09/16 23:14 Order name: Urine Microscopic Only; Complete Time: 00:17 09/17 00:17 Interpretation: Reviewed. 09/16 23:14 Order name: IV Saline Lock; Complete Time: 23:28 cp 09/16 23:14 Order name: Labs collected and sent; Complete Time: 23:28 09/16 23:14 Order name: Urine Dipstick-Ancillary (obtain specimen); Complete Time: 00:08 cp 09/16 23:14 Order name: CT Stone Protocol 09/17 00:02 Order name: Urine Dipstick-Ancillary; Complete Time: 00:17 EDMS 09/17 00:41 Order name: XRAY Chest (1 view) cp Administered Medications: 00:04 Drug: morphine IVP or IV 4 mg Route: IVP; Infused Over: 4 mins; Site: right antecubital;pf1 00:04 Drug: Ondansetron IVP 4 mg Route: IVP; Site: right antecubital; pf1 00:04 Drug: NS 0.9% IV 500 ml Route: IV; Rate: 500 ml/hr; Site: right antecubital; pf1 01:27 Drug: Lidoderm Topical Patch 5 % (700 mg/patch) 1 patches Route: Topical; Site: jb4 affected area; Disposition Summary: 09/17/22 01:59 Discharge Ordered Location: Home cp Problem: new cp Symptoms: have improved cp Condition: Stable cp Diagnosis - Low back pain cp - Cough cp Followup: cp - With: Private Physician - When: 2 - 3 days - Reason: Recheck today's complaints Forms: - Medication Reconciliation Form cp - Thank You Letter cp - Antibiotic Education cp - Prescription Opioid Use cp Signatures: Dispatcher [employer] EDMS David Baig PA PA cp Michael Barragan RN RN jb4 Jen Jin RN RN ha1 Yanely norton RN RN pf1
[2022-09-17 03:14] VITALS: BP 157/96; TEMP 97.7; O2SAT 100
--- NOTE | 2022-09-18 14:54 | RAD REPORT ---
EXAM DESCRIPTION: RAD - Chest Single View - 09/17/2022 1:32 am CLINICAL HISTORY: Cough.. TECHNIQUE: AP portable chest x-ray upright on 09/17/2022, at 01: 28. COMPARISON: None. FINDINGS: Heart: Normal size and configuration. Mediastinal Structures: Normal and midline.. Lung Meeks: No active disease. Pulmonary Vascularity: Normal. Pleural Space: No active disease. Bony Structures: Normal. IMPRESSION: Normal study. Electronically signed by: Boston Pike MD 09/17/2022 1:39 AM CDT Due to temporary technical issues with the PACS/Fluency reporting system, reports are being signed by the in house radiologists without review as a courtesy to insure prompt reporting. The interpreting radiologist is fully responsible for the content of the report.
--- NOTE | 2022-09-18 14:57 | RAD REPORT ---
EXAM DESCRIPTION: CT - Stone Protocol - 09/17/2022 6:25 am CLINICAL HISTORY: Flank pain. TECHNIQUE: CT scan of the abdomen and pelvis was performed without intravenous contrast. Stone tapan col was utilized. 2.5 mm axial images were obtained along with coronal and sagittal reformatted image s. COMPARISON: 12/15/2021. DOSE OPTIMIZATION: This facility uses dose optimization techniques as appropriate to perform exams, including at least one of the following techniques: 1. Automated exposure control. 2. Adjustment of the mA and/or kV according to patient size (this includes techniques or standardized protocols for targeted exams where dose is matched to the indication/reason for exam, i.e. extremiti es or head). 3. Use of iterative reconstructive technique. FINDINGS: Lung Bases: Normal. Liver: Normal. Spleen: Normal. Pancreas: Normal. Gallbladder: Normal. Adrenal Glands: Normal. Right Kidney: Normal. Left Kidney: Normal. Right Ureter: Normal. Left Ureter: Normal. Urinary Bladder: Normal. Retroperitoneal Structures: Normal. Bowel Survey: The stomach is nondistended. The small bowel is unremarkable. The appendix is unremarkable. There is a moderate amount residual stool identified throughout the colon. Prostate Gland: Mildly enlarged. Peritoneal Cavity: Normal. Mesenteric Structures: Normal. Abdominal Wall: There is a moderate-sized umbilical hernia containing fat, stable. Bony Structures: No suspicious lesions. IMPRESSION: 1. There is a moderate amount residual stool throughout the colon. 2. There is no evidence of obstructive uropathy. 3. There is a moderate-sized umbilical hernia containing fat, stable. Electronically signed by: Boston Pike MD 09/17/2022 12:37 AM CDT Due to temporary technical issues with the PACS/Fluency reporting system, reports are being signed by the in house radiologists without review as a courtesy to insure prompt reporting. The interpreting radiologist is fully responsible for the content of the report.
== END 2022-09-17 02:26 | disposition home or self-care (01) ==
LOC: ER 22:35
DX: M54.50 Low back pain, unspecified (principal); R05.9 Cough, unspecified; R10.32 Left lower quadrant pain; I10 Essential (primary) hypertension; M10.9 Gout, unspecified
CPT/HCPCS: 36415; 71045; 74176; 76377; 80053; 81003; 81015; 83690; 85025; 96374; 96375; 99284; J2001; J2405; J7040

== ENCOUNTER 2023-05-03 19:24 | Emergency (ER) | payer SELFPAY ==
--- OUTSIDE RECORDS SUMMARY | 2023-05-03 19:28 | XMS REPORT | Continuity of Care Document ---
:[address] [facility] t Address [address] [place] [address] [place] [id number] Care Team Providers Name Role Phone Bin Campbell DO Primary Care Physician [phone] Bin Campbell Attending Clinician Unavailable Emma Mccauley Attending Clinician Unavailable Balitbit_R Attending Clinician Unavailable GC_SEFP_Rivera_A Attending Clinician Unavailable Balitbit_R Admitting Clinician Unavailable GC_SEFP_Rivera_A Admitting Clinician Unavailable Payers Payer Name Policy Type Policy Number Effective Date Expiration Date Sunday [place]ALTH [place] Problems Condition Condition Condition Status Onset Resolution Last Treating Co mments Source Name Details Category Date Date Treatment Clinician Date Gout Gout Problem Active [facility] 02-06 Family 00:00: Practic 00 e Morbid Morbid Problem Active [facility] obesity Obesity 02-06 Family 00:00: Practic 00 e Obstructiv Obstructiv Problem Active [facility] Sleep 02-06 Family apnea of Apnea of 00:00: Practi c adult Adult 00 e Essential Essential Problem Active Nicole mi hypertensi Hypertensi 02-06 Fa khalida on on 00:00: Practic 00 e Benign Benign Problem Active [facility] prostatic Prostatic 02-06 Fami ly hyperplasi Hyperplasi 00:00: Pr actic a with a with 00 e outflow Outflow obstructio Obstructio n n Allergies, Adverse Reactions, Alerts This patient has no known allergies or adverse reactions. Social History Social Habit Start Date Stop Date Quantity Comments Source Sex Assigned At [birth year] VISH[facility] Tan [facility] Smoking Status Start Date Stop Date Source Never Smoker [facility] Family P ractice Medications Ordered Filled Start Stop Current Ordering Indication Dosage Frequency Signature Comments Components Source Medication Medication Date Date Medication? Clinician (SIG) Name Name allopurinol allopurinol No allopurino [facility] 300 mg 300 mg l 300 mg Family tablet TAKE tablet TAKE tablet Practic ONE (1) ONE (1) TAKE ONE e TABLET(S) TABLET(S) (1) BY MOUTH BY MOUTH TABLET(S) ONCE A DAY. ONCE A DAY. BY MOUTH ONCE A DAY. doxycycline doxycycline No 1capsul Q1D doxycyclin [facility] hyclate 100 hyclate 100 e(s) e hyclate Family mg capsule mg capsule 100 mg P ractic Take 1 Take 1 capsule e capsule capsule Take 1 every day every day capsule by oral by oral every day route. route. by oral route. finasteride finasteride No 1 Q1D finasterid [facility] 5 mg tablet 5 mg tablet e 5 mg Family Take 1 Take 1 tablet Practic tablet tablet Take 1 e every day every day tablet by oral by oral every day route. route. by oral route. lisinopril lisinopril No lisinopril [facility] 40 mg 40 mg 40 mg Family tablet TAKE tablet TAKE tablet Practic 1 TABLET BY 1 TABLET BY TAKE 1 e MOUTH ONCE MOUTH ONCE TABLET BY DAILY DAILY MOUTH ONCE DAILY tamsulosin tamsulosin No tamsulosin [facility] 0.4 mg 0.4 mg 0.4 mg Family capsule capsule capsule Practi c TAKE ONE TAKE ONE TAKE ONE e (1) (1) (1) CAPSULE(S) CAPSULE(S) CAPSULE(S) BY MOUTH AT BY MOUTH AT BY MOUTH BEDTIME. BEDTIME. AT BEDTIME. Vital Signs Vital Name Observation Time Observation Value Comments Source BP Diastolic 2022-02-06 00:00:00 84 mm[Hg] [facility] Height 2022-02-06 00:00:00 74 [in_i] [facility] BMI (Body Mass 2022-02-06 00:00:00 50.8 kg/m2 [facility] Index) Practice BP Systolic 2022-02-06 00:00:00 152 mm[Hg] [facility] Body Weight 2022-02-06 00:00:00 396 [lb_av] [facility] Family Practice Procedures Procedure Date / Time Performed Performing Clinician Sourc e home sleep study 2022-02-06 00:00:00 [facility] Domingo casillas Practice Plan of Care Planned Activity Planned Date Details Comments Source Future Scheduled 2023-03-02 Influenza Vaccine (#1) [facility] 00:00:00 [code = Influenza Vaccine Me dical Center (#1)] Future Scheduled 2023-03-02 Influenza Vaccine (#1) [facility] 00:00:00 [code = Influenza Vaccine Me dical Center (#1)] Future Scheduled 2022-07-[address] [facility] 00:00:00 (12+) [code = DEPRESSION Med ical Center SCREENING (12+)] Future Scheduled 2022-07-[address] [facility] 00:00:00 (12+) [code = DEPRESSION Med ical Center SCREENING (12+)] Future Scheduled 2008 Lipid panel (procedure) [facility] 00:00:00 [code = 37921269] Medical Ce nter Future Scheduled 2008 Lipid panel (procedure) [facility] 00:00:00 [code = 83977531] Medical Ce nter Future Scheduled 1992 DTAP/TDAP/TD VACCINES ([address] [facility] 00:00:00 - Tdap) [code = Medical Cent er DTAP/TDAP/TD VACCINES (1 - Tdap)] Future Scheduled 1992 DTAP/TDAP/TD VACCINES ([address] [facility] 00:00:00 - Tdap) [code = Medical Cent er DTAP/TDAP/TD VACCINES (1 - Tdap)] Future Scheduled 1991 HEPATITIS C [facility]CREENING [facility] 00:00:00 [code = HEPATITIS C Medical Center SCREENING] Future Scheduled 1991 HEPATITIS C [facility]CRE[facility]ING [facility] 00:00:00 [code = HEPATITIS C Medical Center SCREENING] Future Scheduled [address] [facility] 00:00:00 virus screening Medical Cent er (procedure) [code = 363805645] Future Scheduled [address] [facility] 00:00:00 virus screening Medical Cent er (procedure) [code = 203914222] Future Scheduled [address] [facility] 00:00:00 Counseling and Screening [facility] Center (12+) [code = Tobacco Cessation Counseling and Screening (12+)] Future Scheduled [address] [facility] 00:00:00 Counseling and Screening [facility] (12+) [code = Tobacco Cessation Counseling and Screening (12+)] Future Scheduled 1973 COVID-19 VACCINE (#1) [facility] 00:00:00 [code = COVID-19 VACCINE Med ica Center (#1)] Future Scheduled 1973 COVID-19 VACCINE (#1[facility] 00:00:00 [code = COVID-19 VACCINE [facility] Center (#1)] Future Scheduled 1973 CT Colonography (combo) [facility] 00:00:00 [code = CT Colonography [facility] (combo)] Future Scheduled 1973 Screening for malignant [facility] 00:00:00 neoplasm of colon Medical Ce nter (procedure) [code = 044371637] Future Scheduled 1973 Screening for malignant [facility] 00:00:00 neoplasm of colon Medical Ce nter (procedure) [code = 166219578] Future Scheduled 1973 Screening for malignant [facility] 00:00:00 neoplasm of colon Medical Ce nter (procedure) [code = 518397609] Future Scheduled 1973 Screening for malignant [facility] 00:00:00 neoplasm of colon Medical Ce nter (procedure) [code = 586991811] Future Scheduled 1973 Sigmoidoscopy [code = [facility] 00:[facility] Sigmoidoscopy] Medical Cente r Future Scheduled 1973 CT Colonography (combo) [facility] 00:00:00 [code = CT Colonography [facility] (combo)] Future Scheduled 1973 Screening for malignant [facility] 00:00:00 neoplasm of colon Medical Ce nter (procedure) [code = 417593537] Future Scheduled 1973 Screening for malignant [facility] 00:00:00 neoplasm of colon Medical Ce nter (procedure) [code = 505493678] Future Scheduled 1973 Screening for malignant [facility] 00:00:00 neoplasm of colon Medical Ce nter (procedure) [code = 848302725] Future Scheduled 1973 Screening for malignant [facility] 00:00:00 neoplasm of colon Medical Ce nter (procedure) [code = 577566104] Future Scheduled 1975 Sigmoidoscopy [code = [facility] 00:[facility] Sigmoidoscopy] Medical Cente r Encounters Start End Encounter Admission Attending Care Care Encounter Source Date/Time Date/Time Type Type Clinicians Facility Department ID 2023-01-25 Outpatient Campbell, STLMLC [facility] [id number] Common 14:51:00 Bin [id number] [facility] 2022-08-31 Outpatient Campbell, STLMLC [facility] [id number] Common 10:31:00 Bin [id number] [facility] 2022-08-30 Outpatient Campbell, STLMLC [facility] [id number] Common 14:02:01 Bin [id number] [facility] 2022-04-04 Outpatient Campbell, STLMLC [facility] [id number] Common 08:39:01 Bin [facility] 2022-01-10 Outpatient Campbell, STLMLC [facility] [id number] Common 12:55:01 Bin [facility] 2021-11-03 Outpatient Campbell, STLMLC [facility] [id number] Common 15:25:01 Bin [facility] 2021-09-07 Outpatient Campbell, STLMLC [facility] [id number] Common 10:39:03 Bin [facility] 2021-07-27 Outpatient Campbell, STLMLC [facility] [id number] Common 14:24:18 Bin [facility] 2021-07-27 Outpatient Campbell, STLMLC [facility] [id number] Common 14:22:53 Bin [id number] [facility] 2021-07-27 [facility] [id number] Common 12:39:48 Bin [id number] [facility] 2021-07-27 Out[facility] Campbell, [facility] [id number] Common 12:33:07 Bin [id number] [facility] 2021-07-27 Outpatient Campbell, [facility] [id number] Common 12:28:27 Bin [id number] [facility] 2021-07-27 Outpatient Campbell, [facility] [id number] Common 12:28:02 Bin [id number] [facility] 2021-07-27 Outpatient Campbell, [facility] [id number] Common 11:56:04 Bin [id number] [facility] 2021-07-27 Outpatient Campbell, [facility] [id number] Common 11:48:40 Bin [id number] [facility] 2022-10-17 2022-10-[address] [facility], [facility] [id number] 00:[facility] 00[facility]00[facility]00 [facility] 2022-10-17 2022-10-17 Telephone [facility] [id number] 00:[facility] 00:00:00 [facility] 2022-05-12 2022-05-12 Outpatient Balitbit_R VFP VFP [id number] [facility] 00:00:00 00:00:00 [id number] Family Practic e 2022-02-06 2022-02-06 Outpatient Balitbit_R VFP VFP [id number] [facility] 00:00:00 00:00:00 [id number] Family Practic e 2022-02-06 2022-02-06 Pamela Smith VFP [place] - [id number] [facility] 00:00:00 00:00:00 Ariana, [facility] Caitie posada MD: [id number] Medical - Pract Medical _[address], [place] [address] , Ph. 2022-02-05 2022-02-05 Outpatient Balitbit_R VFP VFP [id number] [facility] 00:00:00 00:00:00 [id number] Family Practic e 2022-01-26 2022-01-26 Outpatient GC_SEFP_Riv PRIV PRIV [id number] [facility] 00:00:00 00:00:00 era_A [id number] Medica l 2022-01-26 2022-01-26 Outpatient Balitbit_R VFP VFP [id number] [facility] 00:00:00 00:00:00 [id number] Family Practic e Results This patient has no known results.
[2023-05-03 20:15] LABS: Absolute Lymphocytes (CBC) 2.4 K/uL (0.7-4.9); Hematocrit 43.5 % (39.6-49.0); Lymphocytes % 22.8 % (15.3-44.8); MCV 88.9 fL (80-100); MPV 7.9 fL (7.6-11.3); Platelets 199 thou/uL (152-406); RBC Red Blood Cell Count 4.89 M/uL (4.33-5.43)
[2023-05-03 20:22] LABS: Specific Gravity 1.008 (1.005-1.030); Urine Bacteria None Seen /HPF (<20); Urine Bilirubin NEGATIVE (Negative); Urine Blood 3+ (OVER) (Negative); Urine Clarity Extremely Turbid (Clear); Urine Color Brown (Yellow); Urine Glucose NEGATIVE (Negative); Urine Protein 1+ (Negative); Urine RBC >50 /HPF (None Seen); Urine Urobilinogen Normal (Normal)
[2023-05-03 20:27] LABS: Potassium 3.9 mEq/L (3.5-5.1)
--- NOTE | 2023-05-03 21:35 | RAD REPORT ---
EXAM DESCRIPTION: CT - Abdomen Pelvis W Contrast - 05/03/2023 8:53 pm CLINICAL HISTORY: Hematuria;Abd pain COMPARISON: Stone Protocol dated 09/17/2022 TECHNIQUE: Thin cut axial CT imaging of the abdomen and pelvis was performed following intravenous a dministration of 100 mL Isovue 300. Multiplanar reformats were generated and reviewed. All CT scans are performed using dose optimization technique as appropriate and may include automated exposure control or mA/KV adjustment according to patient size. FINDINGS: No suspicious findings in the lung bases. The liver, spleen, and pancreas show no suspicious findings. Left adrenal rounded fat containing 3.0 cm mass, stable, most compatible with a myelolipoma. Gallbladder and biliary tree are also without cunningham spicious finding. Symmetric renal function is seen with no hydronephrosis or suspicious renal mass. No dilated bowel loops or bowel wall thickening. No free air, free fluid or inflammatory stranding. B ilateral inguinal hernias and umbilical hernia containing fat. No suspicious mass or bulky lymphadeno marcelle. The urinary bladder is decompressed, limiting evaluation, with pronounced wall thickening note d. Marked prostatomegaly. No suspicious bony findings. Stable ovoid 1.7 cm lesion along the left iliac crest with sclerotic mar gins, with narrow transition zone, benign in appearance and may represent a healing bone cyst or smal l enchondroma. IMPRESSION: Decompressed bladder limiting evaluation, with pronounced wall thickening. Underlying cy stitis should be considered. Please correlate clinically and with urinalysis results. Stable incidental findings as above, including prostatomegaly, bilateral inguinal and umbilical herni as, and left adrenal myelolipoma.
--- NOTE | 2023-05-03 21:43 | ER ---
Nurse's Notes [facility] Name: Jad Sanz Age: 47 yrs Sex: Male : 1975 Arrival Date: 05/03/2023 Time: 19:24 Bed 17 Private MD: Diagnosis: Acute cystitis with hematuria Presentation: 05/03 19:32 Chief complaint: Patient states: right flank pain and urinating blood onset today. Pt cm10 states that the pain radiates to his RLQ. Pt reports urinary frequency and burning with urination. Coronavirus screen: Vaccine status: Patient reports receiving the 2nd dose of the covid vaccine. Client denies travel out of the [place] in the last 14 days. Ebola Screen: Patient denies travel to an Ebola-affected area in the 21 days before illness onset. No symptoms or risks identified at this time. Initial Sepsis Screen: Does the patient meet any 2 criteria? No. Patient's initial sepsis screen is negative. Does the patient have a suspected source of infection? No. Patient's initial sepsis screen is negative. Risk Assessment: Do you want to hurt yourself or someone else? Patient reports no desire to harm self or others. Onset of symptoms was May 03, 2023. 19:32 Method Of Arrival: Ambulatory cm10 19:32 Acuity: RONNI 3 cm10 Triage Assessment: 19:35 General: Appears in no apparent distress. comfortable, Behavior is calm, cooperative. cm10 Historical: - Allergies: 19:34 NKA; cm10 - PMHx: 19:34 Gout; Hypertension; cm10 - Immunization history:: Adult Immunizations unknown. - Social history:: Smoking status: Patient denies any tobacco usage or history of. Screenin:57 [facility] ED Fall Risk Assessment (Adult) History of falling in the last 3 months, rv including since admission No falls in past 3 months (0 pts). [facility] ED Fall Risk Assessment (Adult) Score/Fall Risk Level 0 - 2 = Low Risk Oriented to surroundings, Maintained a safe environment, Educated pt \T\ family on fall prevention, incl call for assistance when getting out of bed, Assessed \T\ reinforced patient's understanding of fall precautions, Provided non-skid footwear, Hourly rounding (assess needs \T\ fall precautionary measures) done, Used ambulatory aids as needed (educated on \T\ assisted with), Used gait belt as appropriate. Abuse screen: Denies threats or abuse. Denies injuries from another. Nutritional screening: No deficits noted. Tuberculosis screening: No symptoms or risk factors identified. Assessment: 19:40 General: Appears in no apparent distress. uncomfortable, Behavior is calm, cooperative, eh3 appropriate for age. Pain: Complains of pain in right flank Pain radiates to right lower quadrant. Neuro: Level of Consciousness is awake, alert, obeys commands, Oriented to person, place, time, situation. Cardiovascular: Capillary refill < 3 seconds Patient's skin is warm and dry. Respiratory: Airway is patent Respiratory effort is even, unlabored, Respiratory pattern is regular, symmetrical. GI: Abdomen is round Bowel sounds present X 4 quads. Abd is soft X 4 quads Abdomen is tender to palpation X 4 quads. : Reports burning with urination, urgency, urinary frequency. Derm: Skin is pink, warm \T\ dry. Musculoskeletal: Circulation, motion, and sensation intact. Vital Signs: 19:32 BP 141 / 82; Pulse 87; Resp 16; Temp 98.4(TE); Pulse Ox 98% on R/A; Weight 172.37 kg; cm10 Height 6 ft. 1 in. ; Pain 7/10; 22:12 BP 136 / 80; Pulse 83; Resp 18; Temp 98; Pulse Ox 99% on R/A; rv 19:32 Body Mass Index 50.13 (172.37 kg, 185.42 cm) cm10 19:32 Pain Scale: Adult cm10 ED Course: 19:28 Patient arrived in ED. ag3 19:34 Triage completed. cm10 19:35 Arm band placed on Patient placed in an exam room, on a stretcher. cm10 19:37 Nadine Manzanares FNP-C is PHCP. kb 19:37 Orestes Campbell MD is Attending Physician. kb 19:40 Provided Education on: use of call jason. eh3 19:57 Patient has correct armband on for positive identification. Client placed on continuous rv cardiac and pulse oximetry monitoring. NIBP monitoring applied. 19:57 Inserted saline lock: 20 gauge in right antecubital area, using aseptic technique. rv Blood collected. 20:09 [place] Amato, JEVON is Primary Nurse. eh3 20:19 Radiology exam delayed due to lab results not completed at this time. (BUN/Creatinine). nj 20:[address] via wheelchair. iv 20:54 CT Abd/Pelvis - IV Contrast Only In Process Unspecified. EDMS 20:55 CT completed. Patient tolerated procedure well. iv 20:55 Patient moved back from CT. iv 21:09 No provider procedures requiring assistance completed. rv 22:13 IV discontinued, intact, bleeding controlled, No redness/swelling at site. Pressure rv dressing applied. Administered Medications: 22:02 Drug: Rocephin IV 1 grams IV at calculated rate once; Given slow IV push per pharmacy rv instructions Route: IV; Rate: calculated rate; Site: right antecubital; 22:13 Follow up: Response: Medication administered at discharge.; IV Status: Completed rv infusion; IV Intake: 100ml 22:02 Drug: Ketorolac IVP 15 mg IVP once Route: IVP; Site: right antecubital; rv 22:13 Follow up: Response: Medication administered at discharge. rv 22:02 Drug: Phenazopyridine PO 100 mg PO once Route: PO; rv 22:13 Follow up: Response: Medication administered at discharge. rv Medication: 19:57 VIS not applicable for this client. rv Intake: 22:13 IV: 100ml; Total: 100ml. rv Outcome: 21:43 Discharge ordered by MD. kb 22:13 Discharged to home ambulatory, with family, rv 22:13 Condition: good 22:13 Discharge instructions given to patient, family, Instructed on discharge instructions, follow up and referral plans. medication usage, Demonstrated understanding of instructions, follow-up care, medications, Prescriptions given X 2, 22:14 Patient left the ED. rv Addendum: 05/10/2023 10:47 Addendum: Culture Results: Positive urine culture. No further action required. Other: j l7 Per Anayeli Adorno NP. Signatures: Dispatcher [employer] EDMS Nadine Manzanares, STRIP PRESSER-C STRIP PRESSER-Cristopher Estes Jahala RN RN [id number] Rui Lyn, RN RN rv Breonna Luciano3 [place] Amato, JEVNO RN 3 Karla Wills, RN RN cm10 Tiffanie Abrams iv
--- NOTE | 2023-05-03 21:43 | EDPHYS ---
Physician Documentation [facility] Name: Jad Sanz Age: 47 yrs Sex: Male : 1975 Arrival Date: 05/03/2023 Time: 19:24 Bed 17 Private MD: ED Physician Orestes Campbell HPI: 05/03 21:46 This 47 yrs old Male presents to ER via Ambulatory with complaints of Urinary kb Problem, Abdominal Problem. 21:46 Patient reports urinary frequency, dysuria and hematuria that started today. Denies kb fever.. Historical: - Allergies: 19:34 NKA; cm10 - PMHx: 19:34 Gout; Hypertension; cm10 - Immunization history:: Adult Immunizations unknown. - Social history:: Smoking status: Patient denies any tobacco usage or history of. ROS: 21:46 Constitutional: Negative for fever, chills, and weight loss, kb 21:46 : Positive for urinary frequency, hematuria, burning with urination, 21:46 All other systems are negative, Exam: 21:46 Constitutional: This is a well developed, well nourished patient who is awake, alert, kb and in no acute distress. Head/Face: Normocephalic, atraumatic. ENT: Moist Mucous membranes Cardiovascular: Regular rate Respiratory: Respirations even and unlabored. No increased work of breathing. Talking in full sentences Abdomen/GI: Soft, non-tender. No distention Skin: Warm, dry with normal turgor. Normal color. MS/ Extremity: Pulses equal, no cyanosis. Neurovascular intact. Full, normal range of motion. Neuro: Awake and alert, GCS 15, oriented to person, place, time, and situation. Moves all extremities. Normal gait. Vital Signs: 19:32 BP 141 / 82; Pulse 87; Resp 16; Temp 98.4(TE); Pulse Ox 98% on R/A; Weight 172.37 kg; cm10 Height 6 ft. 1 in. ; Pain 7/10; 22:12 BP 136 / 80; Pulse 83; Resp 18; Temp 98; Pulse Ox 99% on R/A; rv 19:32 Body Mass Index 50.13 (172.37 kg, 185.42 cm) cm10 19:32 Pain Scale: Adult cm10 MDM: 19:38 Patient medically screened. kb 21:47 Differential diagnosis: UTI, Cystitis, kidney stone, cancer. Data reviewed: vital kb signs, nurses notes. Counseling: I had a detailed discussion with the patient and/or guardian regarding the historical points, exam findings, and any diagnostic results supporting the discharge/admit diagnosis, lab results, radiology results, the need for outpatient follow up, a urologist, to return to the emergency department if symptoms worsen or persist or if there are any questions or concerns that arise at home. 05/03 19:47 Order name: CBC with Diff; Complete Time: 20:21 kb 05/03 19:47 Order name: Basic Metabolic Panel; Complete Time: 20:28 kb 05/03 19:47 Order name: Urinalysis w/ reflexes; Complete Time: 20:26 kb 05/03 20:29 Order name: Urine Culture EDMS 05/03 19:47 Order name: CT Abd/Pelvis - IV Contrast Only; Complete Time: 21:37 kb 05/03 19:47 Order name: IV Start; Complete Time: 19:57 kb Administered Medications: 22:02 Drug: Rocephin IV 1 grams IV at calculated rate once; Given slow IV push per pharmacy rv instructions Route: IV; Rate: calculated rate; Site: right antecubital; 22:13 Follow up: Response: Medication administered at discharge.; IV Status: Completed rv infusion; IV Intake: 100ml 22:02 Drug: Ketorolac IVP 15 mg IVP once Route: IVP; Site: right antecubital; rv 22:13 Follow up: Response: Medication administered at discharge. rv 22:02 Drug: Phenazopyridine PO 100 mg PO once Route: PO; rv 22:13 Follow up: Response: Medication administered at discharge. rv Disposition Summary: 05/03/23 21:43 Discharge Ordered Notes: Location: Home kb Condition: Stable kb Diagnosis - Acute cystitis with hematuria kb Followup: kb - With: Emergency Department - When: As needed - Reason: Worsening of condition Followup: kb - With: Private Physician - When: 2 - 3 days - Reason: Recheck today's complaints, Continuance of care, Re-evaluation by your physician Discharge Instructions: - Discharge Summary Sheet kb - Urinary Tract Infection, Adult, [id number] kb Forms: - Medication Reconciliation Form kb - Thank You Letter kb - Antibiotic Education kb - Prescription Opioid Use kb - Patient Portal Instructions kb - Leadership Thank You Letter kb - Work release form rv Prescriptions: - Pyridium 200 mg Oral Tablet - take 1 tablet ORAL route every 8 hours for 3 days; 9 tablet; Refills: 0, kb Product Selection Permitted - cefpodoxime 100 mg Oral Tablet - take 1 tablet ORAL route every 12 hours for 10 days take with food; 20 tablet; kb Refills: 0, Product Selection Permitted Signatures: Dispatcher [employer] Nadine Ortega, Rui Ramirez, RN RN rv Karla Wills RN RN cm10
[2023-05-03] MEDS ORDERED: PHENAZOPYRIDINE 100MG TAB PO ONE (22:09)
[2023-05-03] MEDS ORDERED: CEFTRIAXONE 1000 MG/VIAL ONE (22:09)
[2023-05-03] MEDS ORDERED: KETOROLAC 30 MG/ML INJ ONE (22:09)
[2023-05-03] MEDS ORDERED: NA CHLORIDE 0.9% 100 ML ONE (22:09)
[2023-05-04 01:23] VITALS: BP 136/80; TEMP 98; O2SAT 99
== END 2023-05-03 22:14 | disposition home or self-care (01) ==
LOC: ER 19:24
DX: N30.01 Acute cystitis with hematuria (principal)
CPT/HCPCS: 36415; 74177; 80048; 81001; 85025; 87077; 87086; 87088; 87186; 96374; 96375; 99285; J0696; Q9967